=== PATIENT | female | born 1990 | race Caucasian/White ===

== ENCOUNTER 2019-07-19 05:42 | Outpatient (RCR) | payer OTHER, MEDICAID, SELFPAY | END 2019-07-31 00:01 | LOC: ONCMED 05:42 | PROVIDERS: Family Provider Internal Medicine Medical Oncology; Visit Provider Nurse Practitioner | DX: Z51.0 Encounter for antineoplastic radiation therapy (principal); Z51.11 Encounter for antineoplastic chemotherapy; C53.9 Malignant neoplasm of cervix uteri, unspecified; R51 Headache; H93.11 Tinnitus, right ear; R11.0 Nausea; D61.810 Antineoplastic chemotherapy induced pancytopenia; T45.1X5A Adverse effect of antineoplastic and immunosuppressive drugs, initial encounter; R53.83 Other fatigue; R06.02 Shortness of breath; Z79.899 Other long term (current) drug therapy | CPT/HCPCS: 36415; 70553; 77280; 77300; 77336 ×2; 77338; 77386 ×12; 80053 ×3; 85025 ×4; 96365; 96366 ×2; 96367 ×2; 96375 ×2; 96413 ×2; 99214 ×3; A9579; J1100 ×2; J1642 ×3; J1940 ×2; J2469 ×2; J3475 ×3; J3480 ×2; J3490; J7040 ×2; J7050 ×5; J9060 ×2 ==

== ENCOUNTER 2019-08-06 05:45 | Outpatient (RCR) | payer OTHER, MEDICAID, SELFPAY ==
[2019-08-06 14:02] LABS: Basophils % 0.2 %; Eosinophils % 0.7 %; Hematocrit 27.5 % (37.0-47.0); Hemoglobin 9.3 g/dL (11.5-15.3); Lymphocytes # 0.5 10^3/uL (0.8-4.8); Lymphocytes % 13.2 %; Mean Corpuscular HGB Conc 33.8 g/dL (30.0-36.0); Mean Corpuscular Hemoglobin 32.5 pg (28.0-34.0); Mean Corpuscular Volume 96.2 fL (81-99); Mean Platelet Volume 9.4 fL (7.4-10.4); Monocytes # 0.5 10^3/uL (0.2-0.9); Monocytes % 11.2 %; Nucleated Red Blood Cells % 0 %; Platelet Count 180 10^3/cmm (130-400); Red Blood Count 2.86 10^6/uL (4.1-5.3); Red Cell Distribution Width 16.5 % (12.1-15.1)
[2019-08-06 14:35] LABS: Alanine Aminotransferase 22 U/L (0-33); Albumin Level 5.4 g/dL (3.5-5.2); Alkaline Phosphatase 97 IU/L (35-105); Anion Gap 17.1 (5-19); Aspartate Amino Transferase 19 U/L (0-32); Blood Urea Nitrogen 18 mg/dL (6-20); Calcium 9.7 mg/Dl (8.6-10.0); Carbon Dioxide 24 mmol/L (22-29); Chloride 99 mmol/L (98-107); Globulin 1.8 g/dL (1.3-4.6); Glomerular Filtration Rate 53.5 mL/min (90-130); Glucose 118 mg/dL (74-109); Potassium 4.1 mmol/L (3.5-5.1); Sodium 136 mmol/L (136-145); Total Bilirubin 0.2 mg/dL (0.15-1.2); Total Protein 7.2 g/dL (6.6-8.7)
--- NOTE | 2019-08-06 16:02 | ONC FU_ITS ---
[facility] Patient Note Patient: Heena Kaur Unit #: [id number]: 1990 Dictated By: Peña PerezDate of Visit: Aug 06, 2019 Onc MED Follow-Up/Prog Note Chief Complaint: Cervical cancer. 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 She has been in good general health. She had presented during her third with intermittent but persistent vaginal bleeding. She was found to have a cervical mass, and the biopsy on 11/02/2018 did confirm invasive squamous cell carcinoma with marked eosinophil response. By IHC the tumor cells were positive for CK5/6, p63, and p16. They were negative for synaptophysin. Staging MRI of the pelvis on 11/16/2018 showed abnormal signal within the anterior cervical wall, concerning for neoplasm. The area of abnormal signal measured 5.7 x 5.2 x 3.7 cm. The abdomen showed no abnormal findings. She was initially seen by Dr. Abdalla on 11/22/2018. At that time her was estimated to be at 17 weeks and 2 days. Further staging with CT abdomen/pelvis on 11/25/2018 showed focal mass within the cervix, which overall measured 6.9 x 5.5 x 5 cm. There was mild bulging into the contiguous parametrial fat, but without gross invasion otherwise. There were no enlarged lymph nodes noted. Nuclear medicine PET scan on 11/28/2018 showed intense FDG activity within the known cervical cancer, SUV 18.6. There was a small focal anterior extension of the abnormal activity from the cervical region, but there was no evidence for metastatic disease. With those findings she was recommended to undergo neoadjuvant chemotherapy with cisplatin/paclitaxel. Her management was complicated by nausea/vomiting, requiring placement of a duodenal feeding tube and subsequently a jejunostomy feeding tube. She also experienced an anaphylactic reaction to Emend. Ultimately she was able to complete 4 cycles of treatment. On 03/19/2019, at 34 weeks gestation, she underwent delivery by section, and she then proceeded to undergo radical total abdominal hysterectomy, bilateral salpingectomy, and pelvic lymphadenectomy. The procedure also included transposition of the ovaries with omental flap. Pathology on the hysterectomy showed no evidence for residual squamous cell carcinoma in the cervix. She was noted to have decidualized endometrium with no evidence of malignancy in the uterus or fallopian tubes. The pelvic lymph node dissection included 3 right pelvic lymph nodes and 8 left pelvic lymph nodes, all of which were negative for metastatic carcinoma. She has had an uneventful postoperative recovery. She was advised to proceed with postoperative radiation concurrently with weekly cisplatin chemotherapy. She also has a history of anemia and a history of migraine headaches. She has had no other prior medical illnesses. Her previous surgeries have been limited to section in 2012 and arthroscopic right knee surgery in 2007. She is a non-smoker. INTERIM HISTORY: She began radiation concurrently with weekly cisplatin chemotherapy on 06/06/2019. She was able to tolerate the chemotherapy with acceptable toxicity, and she continued with week to treatment on 06/13/2019 and with week 3 treatment on 06/20/2019. Her 4th infusion of cisplatin was delayed until 07/02/2019, mainly due to the , though at that point her white blood cell count was dropping. Mrs Kaur is here today for followup. She has completed radiation and chemotherapy. Her last chemotherapy was on July 09, 2019. She completed radiation therapy on July 17, 2019. She states overall she is doing good. She is still tired but that seems to be improving some. She states she feels that she is, getting a upper respiratory symptoms again but has had no fever or chills. She just had runny nose and slight cough thus far . She denies any fever or chills. Her appetite is good. She denies any new shortness of breath or orthopnea. She denies any chest pain or palpitations. She denies nausea or vomiting. She denies any further numbness or tingling in her hands. She had only a slight variations of that during treatment. She denies any diarrhea or constipation. She will complete possibly 3 cycles of brachii therapy. They are once a week and this is done in [place]. She begins that next week. Her ECOG is 1. Past Medical History: Anemia Cervical cancer Past Surgical History: section in 2019 Radical total abdominal hysterectomy, bilateral salpingectomy, pelvic lymphadenectomy in 2019 Placement of jejunostomy feeding tube in 2018 Placement of duodenal feeding tube in 2018 Placement of Port-A-Cath venous access device in 2018 section in 2012 Arthroscopic right knee surgery in 2007 Allergies: Effexor XR and Emend. Medications: Acetaminophen Extra Strength 2 Tablet (of 500 mg) Oral daily PRN Acid Gamer 1 (150 mg) Tablet Oral PRN LORazepam 1 Tablet (of 1 mg) Oral t.i.d. PRN Ondansetron 1 - 2 Tablet (of 4 mg) Tablet Dispersable Oral four times a day PriLOSEC OTC Tablet, enteric coated Oral PRN Promethazine HCl 1 - 2 Tablet (of 25 mg) Oral four times a day PRN Family History: Ms. Kaur's mother is alive: hypertension. Ms. Kaur's father is alive: type II diabetes. Ms. Kaur has 1 brother who is alive. She has 1 sister who is alive. Father is living at age 49 has diabetes. Mother is living at age 48 and she has hypertension. A paternal aunt had colon and cervical cancer, her paternal grandfather had lung cancer, a paternal uncle had liver cancer, and a paternal great aunt had breast cancer. 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 Ms. Kaur has never smoked. 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 She is a nonsmoker. She does not drink alcohol. Review Of Symptoms: Constitutional Denies fevers, night sweats, excessive fatigue or weight loss. She states she is tired, but no more than her normal. Allergic/Immunologic No reactions. Eyes Denies significant visual changes. No diplopia. No amaurosis. ENMT Denies changes in hearing, sore throat, mouth sores, difficulty or changes in swallowing ability, and/or sinus drainage. Ringing in the ears-see above. Hematologic/Lymphatic Denies easy bruising or bleeding. The patient denies any tender or palpable lymph nodes. Respiratory Denies dyspnea on exertion, chest pain, or hemoptysis. Denies orthopnea. Cardiovascular Denies anginal chest pain, palpitations or orthopnea. Gastrointestinal Denies vomiting, diarrhea, GI bleeding, or constipation. Denies change in bowel habits and/or stool color, no heartburn or early satiety. Genitourinary (F) No hematuria, hesitancy, incontinence, vaginal bleeding, discharge or other problems with urination. Musculoskeletal Denies joint pain, swelling or redness. No decreased range of motion. Integumentary Denies chronic rashes, inflammation, ulcerations or skin changes. Neurologic Denies headache, blurred vision, and no areas of focal weakness or numbness. Normal gait. No sensory problems. Psychiatric Denies insomnia, depression, anthony or mood swings. Vital Signs: Performed on Aug 06, 2019 14:48 Height - 67.00 in Temperature - 97.9 F (LOW) Pulse - 102 /min (HIGH) Respiration - 24 /min BP - 106/72 mm(hg) O2 Sat - 97 % Pain - 0,1 - No physically strenuous activity, but ambulatory and able to carry out light or sedentary work (e.g. office work, light house work). (ECOG) Physical Examination: Constitutional Alert, oriented, no acute distress. Skin pale/pink, warm and dry. Head Normocephalic; atraumatic. Eyes Conjunctivae and sclerae are clear and without icterus. Pupils are reactive and equal. Hematologic/Lymphatic No petechiae or purpura. Back/Spine Non-tender to palpation. Extremities No visible deformities, no cyanosis, clubbing or edema. Musculoskeletal No tenderness or swelling, normal range of motion without obvious weakness. Integumentary No rashes or lesions. Neurologic No sensory or motor deficits, normal cerebellar function, normal gait. Psychiatric Alert and oriented times three. Coherent speech. Verbalizes understanding of our discussions today. Laboratory:Test performed on Aug 06, 2019 13:49 Glucose 118 mg/dL BUN 18 mg/dL Creatinine 1.2 mg/dL Cr Clearance (Est) 102.96 mL/min Sodium 136 mmol/L Potassium 4.1 mmol/L Chloride 99 mmol/L CO2 24 mmol/L Calcium 9.7 mg/dL Protein, Total 7.2 g/dL Albumin 5.4 g/dL Globulin 1.8 g/dL Bilirubin, Total 0.2 mg/dL Alkaline Phosphatase 97 IU/L AST (SGOT) 19 IU/L ALT (SGPT) 22 IU/L WBC 4.0 10^9/L RBC 2.86 10^12/L HGB 9.3 g/dL HCT 27.5 % MCV 96.2 fl MCH 32.5 pg MCHC 33.8 g/dL RDW 16.5 % Platelet Count 180 10^9/L MPV 9.4 fL Neutrophils (Gran) 3.0 10^9/L Lymphocytes 0.5 10^9/L Monocytes 0.5 10^9/L Eosinophils 0.0 10^9/L Basophils 0.0 10^9/L Manual Lymphocytes 13.2 % Manual Monocytes 11.2 % Manual Eosinophils 0.7 % Manual Basophils 0.2 % NRBCs 0.0 /100 WBC Impression: 1. 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 2. She was given neoadjuvant chemotherapy with 4 cycles of cisplatin/paclitaxel. Her treatment was complicated by an anaphylactic reaction to Emend. 3. She underwent section delivery followed by radical total abdominal hysterectomy, bilateral salpingectomy, and bilateral pelvic lymph node dissection on 03/19/2019 with complete pathologic response. 4. She has been anemic. She has been undergoing radiation, currently with weekly cisplatin chemotherapy. She has completed 5 infusions of cisplatin. Thus far she has tolerated the treatment with acceptable toxicity, though she did devlop moderately severe pancytopenia. Her last chemotherapy was on . She completed radiation therapy on 07/17/2019. She is slowly showing recovery in her blood counts. Her hemoglobin today is improved from 8.7 on 1219 and 9.3. Her platelets are improved from 63,000 280,000. Her neutrophil count on 1219 was 1600 and today is 3000. Plan: 1. Continue with recovery/surveillance as she completes brachy therapy. 2. Today's labs reviewed in detail and discussed with Ms. Marshall and a copy was given to her. WBC 4.0, hemoglobin 9.3, platelets 180,000 ANC is 3000. Potassium 4.1 random glucose 118 creatinine 1.2 LFTs are normal. 3. Refill Levaquin and Diflucan in the event that her symptoms do turn into upper respiratory infection. She is still recovering from chemotherapy. 4. She is interested in pursuing a new weight loss diet and exercise. I have cautioned her to go slowly at this point as she is still recovering from chemotherapy and will be recovering from brachii therapy as well. 5. We will plan to see her back in 1 month with CBC CMP port flush and follow-up with Dr. Still to establish further plan of care. 6. Ms. Kaur was instructed to contact us in the interim should questions or problems arise. She is aware that if she feels symptomatic she can call and we can do blood work on her in between visits. She will does need a port flush at that time. Signed By: Peña Perez-, [facility] Rony Still MD <<Signature on File>>
== END 2019-08-31 23:59 | disposition home or self-care (01) ==
LOC: ONCMED 05:45
PROVIDERS: Family Provider Internal Medicine Medical Oncology; Visit Provider Nurse Practitioner
DX: C53.9 Malignant neoplasm of cervix uteri, unspecified (principal); Z90.710 Acquired absence of both cervix and uterus; Z92.21 Personal history of antineoplastic chemotherapy; Z92.3 Personal history of irradiation
CPT/HCPCS: 80053; 85025; 99213; G0463

== ENCOUNTER 2019-09-10 05:56 | Outpatient (RCR) | payer OTHER, MEDICAID, SELFPAY ==
[2019-09-10 09:37] LABS: Basophils % 0.3 %; Eosinophils # 0.7 10^3/uL (0.0-0.8); Eosinophils % 18.1 %; Hematocrit 29.4 % (37.0-47.0); Hemoglobin 9.6 g/dL (11.5-15.3); Lymphocytes # 0.7 10^3/uL (0.8-4.8); Lymphocytes % 19.5 %; Mean Corpuscular HGB Conc 32.7 g/dL (30.0-36.0); Mean Corpuscular Hemoglobin 32.8 pg (28.0-34.0); Mean Corpuscular Volume 100.3 fL (81-99); Mean Platelet Volume 9.6 fL (7.4-10.4); Monocytes # 0.5 10^3/uL (0.2-0.9); Monocytes % 12.3 %; Neutrophils # 1.9 10^3/uL (1.8-7.7); Neutrophils % 49.3 %; Nucleated Red Blood Cells % 0 %; Platelet Count 201 10^3/cmm (130-400); Red Blood Count 2.93 10^6/uL (4.1-5.3); Red Cell Distribution Width 14.1 % (12.1-15.1); White Blood Count 3.8 10^3/uL (4.0-10.0)
[2019-09-10 10:02] LABS: Alanine Aminotransferase 22 U/L (0-33); Albumin Level 4.1 g/dL (3.5-5.2); Alkaline Phosphatase 92 IU/L (35-105); Anion Gap 17.9 (5-19); Aspartate Amino Transferase 19 U/L (0-32); Blood Urea Nitrogen 18 mg/dL (6-20); Calcium 9.5 mg/dL (8.5-10.5); Carbon Dioxide 26 mmol/L (22-29); Chloride 98 mmol/L (98-107); Globulin 2.8 g/dL (1.3-4.6); Glomerular Filtration Rate 59.1 mL/min (90-130); Glucose 105 mg/dL (65-115); Potassium 3.9 mmol/L (3.5-5.1); Sodium 138 mmol/L (136-145); Total Bilirubin 0.2 mg/dL (0.15-1.2); Total Protein 6.9 g/dL (6.6-8.7)
--- NOTE | 2019-09-11 07:36 | ONC FU_ITS ---
Dr. Still Patient Follow-Up Note Patient: Heena Kaur Unit #: [id number]: 1990 Dicatated By: Rony Still M.D.Date of Visit:Sep 10, 2019 Onc Med Follow-up/Prog Note Chief Complaint: Cervical cancer. 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 She has been in good general health. She had presented during her third with intermittent but persistent vaginal bleeding. She was found to have a cervical mass, and the biopsy on 11/02/2018 did confirm invasive squamous cell carcinoma with marked eosinophil response. By IHC the tumor cells were positive for CK5/6, p63, and p16. They were negative for synaptophysin. Staging MRI of the pelvis on 11/16/2018 showed abnormal signal within the anterior cervical wall, concerning for neoplasm. The area of abnormal signal measured 5.7 x 5.2 x 3.7 cm. The abdomen showed no abnormal findings. She was initially seen by Dr. Abdalla on 11/22/2018. At that time her was estimated to be at 17 weeks and 2 days. Further staging with CT abdomen/pelvis on 11/25/2018 showed focal mass within the cervix, which overall measured 6.9 x 5.5 x 5 cm. There was mild bulging into the contiguous parametrial fat, but without gross invasion otherwise. There were no enlarged lymph nodes noted. Nuclear medicine PET scan on 11/28/2018 showed intense FDG activity within the known cervical cancer, SUV 18.6. There was a small focal anterior extension of the abnormal activity from the cervical region, but there was no evidence for metastatic disease. With those findings she was recommended to undergo neoadjuvant chemotherapy with cisplatin/paclitaxel. Her management was complicated by nausea/vomiting, requiring placement of a duodenal feeding tube and subsequently a jejunostomy feeding tube. She also experienced an anaphylactic reaction to Emend. Ultimately she was able to complete 4 cycles of treatment. On 03/19/2019, at 34 weeks gestation, she underwent delivery by section, and she then proceeded to undergo radical total abdominal hysterectomy, bilateral salpingectomy, and pelvic lymphadenectomy. The procedure also included transposition of the ovaries with omental flap. Pathology on the hysterectomy showed no evidence for residual squamous cell carcinoma in the cervix. She was noted to have decidualized endometrium with no evidence of malignancy in the uterus or fallopian tubes. The pelvic lymph node dissection included 3 right pelvic lymph nodes and 8 left pelvic lymph nodes, all of which were negative for metastatic carcinoma. She has had an uneventful postoperative recovery. She was advised to proceed with postoperative radiation concurrently with weekly cisplatin chemotherapy. She also has a history of anemia and a history of migraine headaches. She has had no other prior medical illnesses. Her previous surgeries have been limited to section in 2012 and arthroscopic right knee surgery in 2007. She is a non-smoker. INTERIM HISTORY: She began radiation concurrently with weekly cisplatin chemotherapy on 06/06/2019. She was able to tolerate the chemotherapy with acceptable toxicity, though her 4th infusion of cisplatin was delayed until 07/02/2019, mainly due to the iday. She completed her 5th weekly infusion of cisplatin on 07/09/2019, and her 6th treatment was held due to neutropenia. She had also remained moderately anemic throughout the treatment. She completed radiation on 07/17/2019. The total dose to the pelvis was 4500 cGy followed by a 540 cGy boost to the vaginal cuff. She then underwent vaginal HDR brachytherapy from 08/08/2021 thru 08/21/2019, administered in 3 fractions to a total dose of 1800 cGy. She tolerated it well. She is seen for a followup visit. She still has some fatigue, but her energy is getting better. She has started back to work part-time. Her appetite comes and goes. She has not had fever, but she does complain of having constant hot flashes now. She has no shortness of breath, cough, or chest pain. She still has a little nausea now and then. She has no other GI complaints. She developed some mild bladder symptoms following the brachytherapy, but that appears to be resolving. She has no significant joint or bone pain. She has no focal neurologic symptoms. Medications: Acetaminophen Extra Strength 2 Tablet (of 500 mg) Oral daily PRN Allergies: Effexor XR and Emend. Review of Systems: Constitutional - She is feeling pretty good. She is slowly getting back to work. Her appetite comes and goes. Her weight is up a few pounds. No fever or chills. She has frequent hot flashes and sweating. ECOG score is 1, ENMT - No sinus congestion/drainage. No mouth sores. No sore throat or difficulty swallowing, Hematologic/Lymphatic - She bruises easier than normal, Respiratory - No shortness of breath. No cough. No pleuritic pain or hemoptysis, Cardiovascular - No angina pain. No palpitations, Gastrointestinal - She has occasional nausea. No heartburn or acid reflux. No diarrhea or constipation. No blood in the stool or black stools, Genitourinary (F) - No dysuria or hematuria. No urinary frequency. No urgency or incontinence, Musculoskeletal - No joint or bone pain, Integumentary - No skin complications, Neurologic - No headache or dizziness. No numbness/paresthesias or other focal neurologic symptoms, Psychiatric - No anxiety or depression. She is not sleeping well at night. Vital Signs: Performed on Sep 10, 2019 10:22 Height - 67.00 in Weight - 217.6 lbs (HIGH) BSA - 2.10 sq.m BMI - 34.08 (HIGH) Temperature - 98.0 F (LOW) Pulse - 84 /min Respiration - 18 /min BP - 118/78 mm(hg) O2 Sat - 100 % Pain - 0 Physical Examination: Constitutional - She looks pretty good generally, Eyes - Sclerae nonicteric. Conjunctivae clear, ENMT - No lesions noted in the oral cavity, Hematologic/Lymphatic - No cervical, clavicular, or axillary adenopathy, Respiratory - Lungs are clear with good air movement bilaterally, Cardiovascular - Heart rhyhm is regular. There is no murmur, gallop, or rub noted, Abdomen - Soft. Liver and spleen are not enlarged. There is no abdominal mass or ascites noted and there is no inguinal adenopathy, Extremities - No edema, Neurologic - No focal neurologic deficits noted. Lab/Imaging: Test performed on Sep 10, 2019 09:10 Sodium 138 mmol/L Potassium 3.9 mmol/L Chloride 98 mmol/L CO2 26 mmol/L Anion Gap 17.9 BUN 18 mg/dL Creatinine 1.1 mg/dL Cr Clearance (Est) 112.3200 mL/min eGFR 59.1 mL/min Glucose 105 mg/dL Calcium 9.5 mg/dL Protein, Total 6.9 g/dL Albumin 4.1 g/dL Globulin 2.8 g/dL Bilirubin, Total 0.2 mg/dL ALT (SGPT) 22 U/L AST (SGOT) 19 U/L Alkaline Phosphatase 92 IU/L WBC 3.8 10 3/uL RBC 2.93 10 6/uL HGB 9.6 g/dL HCT 29.4 % MCV 100.3 fL MCH 32.8 pg MCHC 32.7 g/dL RDW 14.1 % Platelet Count 201 10 3/cmm MPV 9.6 fL Neutrophils 1.9 10 3/uL Lymphocytes 0.7 10 3/uL Monocytes 0.5 10 3/uL Eosinophils 0.7 10 3/uL Basophils 0.0 10 3/uL Neutrophil % 49.3 % Lymphocyte % 19.5 % Monocyte % 12.3 % Eosinophil % 18.1 % Basophils % 0.3 % Impression: 1. 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 2. She was given neoadjuvant chemotherapy with 4 cycles of cisplatin/paclitaxel. Her treatment was complicated by an anaphylactic reaction to Emend. 3. She underwent section delivery followed by radical total abdominal hysterectomy, bilateral salpingectomy, and bilateral pelvic lymph node dissection on 03/19/2019 with complete pathologic response. 4. She has chronic anemia. She began radiation concurrently with weekly cisplatin chemotherapy on 06/06/2019. She completed radiation on 07/17/2019. The total dose to the pelvis was 4500 cGy followed by a 540 cGy boost to the vaginal cuff. During that time she received at total of 5 weekly infusions of cisplatin, her 6th treatment having been held due to neutropenia. She remained moderately anemic throughout the treatment. She then underwent vaginal HDR brachytherapy from 08/08/2021 thru 08/21/2019, administered in 3 fractions to a total dose of 1800 cGy. She tolerated it well. At this point she continues have some fatigue, but she appears to be showing good recovery following her treatment. She still has moderately severe anemia, and a specific cause for that has not been determined. Plan: She will be followed now on observation/expectant management. I will see her again in 3 months, and at that time I will obtain additional laboratory studies for evaluation of the anemia. In the meantime, I will have her take a vitamin daily. Signed By: Rony Still M.D. <<Signature on File>>
== END 2019-09-29 23:59 | disposition home or self-care (01) ==
LOC: ONCMED 05:56
PROVIDERS: Absent Provider Nurse Practitioner; Family Provider Internal Medicine Medical Oncology; Visit Provider Internal Medicine Medical Oncology
DX: C53.9 Malignant neoplasm of cervix uteri, unspecified (principal); D64.9 Anemia, unspecified; Z92.3 Personal history of irradiation; Z92.21 Personal history of antineoplastic chemotherapy; Z90.710 Acquired absence of both cervix and uterus
CPT/HCPCS: 36591; 80053; 85025; 99214

== ENCOUNTER 2019-10-09 15:51 | Outpatient (CLI) | payer OTHER, MEDICAID, SELFPAY | END 2019-10-09 15:52 | disposition home or self-care (01) | LOC: ONCMED 16:53 | PROVIDERS: Absent Provider Nurse Practitioner; Family Provider Internal Medicine Medical Oncology; Visit Provider Internal Medicine Medical Oncology | DX: Z45.2 Encounter for adjustment and management of vascular access device (principal) | CPT/HCPCS: 96523 ==

== ENCOUNTER 2019-11-09 08:13 | Outpatient (CLI) | payer OTHER, MEDICAID, SELFPAY | END 2019-11-09 08:14 | disposition home or self-care (01) | LOC: ONCMED 08:13 | PROVIDERS: Visit Provider Internal Medicine Medical Oncology | DX: Z45.2 Encounter for adjustment and management of vascular access device (principal) | CPT/HCPCS: 96523 ==

== ENCOUNTER 2019-12-06 07:59 | Outpatient (CLI) | payer OTHER, MEDICAID, SELFPAY ==
[2019-12-06 12:10] LABS: Basophils % 0.2 %; Eosinophils # 0.1 10^3/uL (0.0-0.8); Eosinophils % 0.9 %; Hematocrit 36.3 % (37.0-47.0); Hemoglobin 11.9 g/dL (11.5-15.3); Lymphocytes # 0.8 10^3/uL (0.8-4.8); Lymphocytes % 14.5 %; Mean Corpuscular HGB Conc 32.8 g/dL (30.0-36.0); Mean Corpuscular Hemoglobin 31.3 pg (28.0-34.0); Mean Corpuscular Volume 95.5 fL (81-99); Mean Platelet Volume 9.3 fL (7.4-10.4); Monocytes # 0.4 10^3/uL (0.2-0.9); Monocytes % 8.1 %; Neutrophils % 75.9 %; Nucleated Red Blood Cells % 0 %; Platelet Count 225 10^3/cmm (130-400); Red Cell Distribution Width 11.6 % (12.1-15.1); White Blood Count 5.3 10^3/uL (4.0-10.0)
[2019-12-06 12:17] LABS: LAB Peripheral Smear Sent for Review
[2019-12-06 12:27] LABS: Alanine Aminotransferase 23 U/L (0-33); Albumin Level 4.3 g/dL (3.5-5.2); Alkaline Phosphatase 97 IU/L (35-105); Anion Gap 15.9 (5-19); Aspartate Amino Transferase 21 U/L (0-32); Blood Urea Nitrogen 17 mg/dL (6-20); Calcium 9.7 mg/dL (8.5-10.5); Carbon Dioxide 25 mmol/L (22-29); Chloride 100 mmol/L (98-107); Ferritin 497 ng/mL (15-150); Globulin 3.4 g/dL (1.3-4.6); Glomerular Filtration Rate 65.6 mL/min (90-130); Glucose 94 mg/dL (65-115); Lactate Dehydrogenase 181 U/L (135-214); Osmolality Calculated 280 mOsm/kg (285-295); Potassium 3.9 mmol/L (3.5-5.1); Sodium 137 mmol/L (136-145); Total Bilirubin 0.2 mg/dL (0.15-1.2); Total Protein 7.7 g/dL (6.6-8.7)
[2019-12-06 12:28] LABS: Homocysteine 11.27
[2019-12-06 12:42] LABS: Vitamin B12 150 pg/mL (232-1245)
[2019-12-10 15:21] LABS: Methylmalonic Acid 345 nmol/L (87-318)
== END 2019-12-06 08:00 | disposition home or self-care (01) ==
LOC: ONCMED 07:59
PROVIDERS: Visit Provider Internal Medicine Medical Oncology
DX: C53.9 Malignant neoplasm of cervix uteri, unspecified (principal)
CPT/HCPCS: 36591; 80053; 82607; 82728; 82746; 83010; 83090; 83615; 83921; 85025; 85045

== ENCOUNTER 2019-12-18 17:13 | Observation (INO) | payer OTHER, SELFPAY ==
[2019-12-18 17:14] VITALS: BP 116/87; PULSE 116; RESP 22; TEMP 36.9; O2SAT 96; BMI 31.3
--- NOTE | 2019-12-18 17:28 | W.ED.BACK ---
Documented by User: Thomas Goode DO 12/19/19 15:38 HPI - Back Pain/Injury General: Chief Complaint: Back Pain/Injury Stated Complaint: lower back pain Time Seen by Provider: 12/18/19 17:23 History of Present Illness: HPI Narrative: 29-year-old female who was at work suddenly began having severe back pain she cannot recall anything she really did to trigger there is no trauma she has had back pain before but never to this extent. She has at times felt like she would lose control of her bowels or her urine. Pain starts in her upper lumbar spine and radiates down into the right buttock and the posterior portion of her right thigh does not go down into her toes. Initially she is in such exquisite pain is difficult to even examine her. MD elicited complaint: back pain Onset (ago): hour(s) Timing: constant Severity: severe Quality: stabbing Location: lumbar spine Radiation: right upper leg Exacerbating factors: movement and walking Relieving factors: other (Prone) Associated symptoms: Reports difficulty walking and weakness; Deny dysuria, fecal incontinence, fever(s), hematuria, myalgias, nausea, syncope, urinary frequency, urinary urgency or vomiting Work related injury: No Review of Systems Const: Denies: fever(s) ENMT: Denies: throat pain, ear or mastoid pain, nasal discharge or nasal congestion Card: Denies: syncope Resp: Denies: dyspnea, productive cough or non-productive cough GI: Denies: nausea, vomiting or fecal incontinence : Denies: dysuria, urinary urgency or hematuria Skin/Breast: Denies: rash or pruritus Neuro: Reports: difficulty walking PFSH ED PFSH: Medical History History of cervical cancer Surgical History History of hysterectomy Social History Smoking and tobacco status: never smoked Alcohol intake: never Current occupation: [employer] Physical Exam Const: COMMON NORMALS: no acute distress GENERAL APPEARANCE: cooperative and comfortable ORIENTATION/CONSCIOUSNESS: Yes awake, Yes oriented to person, Yes oriented to place and Yes oriented to time Neck/C-Spine: COMMON NORMALS: no JVD Resp: COMMON NORMALS: normal respiratory effort, No retractions, No use of accessory muscles and clear to auscultation bilaterally AUSCULTATION: clear to auscultation bilaterally Cardio: COMMON NORMALS: no JVD, regular rate, regular rhythm and No murmurs present (Cardio) RATE: regular rate RHYTHM: regular rhythm GI: COMMON NORMALS: Soft to palpation and No hepatosplenomegaly present AUSCULTATION: Yes normoactive bowel sounds PALPATION: Yes Soft to palpation, No Tenderness to palpation present (GI), No Guarding due to palpation present (GI) and Yes No hepatosplenomegaly present Extremity: COMMON NORMALS: normal to inspection, capillary refill normal, no clubbing, cyanosis or edema, no calf tenderness and no pedal edema Neuro: SENSORIUM/ORIENTATION: Yes oriented to person, Yes oriented to place and Yes oriented to time Skin: COMMON NORMALS: no rashes or lesions noted GENERAL SKIN EXAM: no rashes or lesions noted Course Vital Signs: Vital signs: Vital Signs Temperature 98.2 F 12/19/19 11:55 Pulse Rate 95 12/19/19 11:55 Respiratory Rate 18 12/19/19 11:55 Blood Pressure 119/77 12/19/19 11:55 Pulse Oximetry 96 12/19/19 11:55 MDM - Back Pain/Injury MDM Narrative: Medical decision making narrative: Patient's presentation is concerning for cauda equina syndrome she is describing since of losing her bowels at times. Additionally she has a history of aggressive cervical cancer previous had a hysterectomy we will get an MRI to further evaluate care turned over to Dr. Bateman at change of shift Lab Data: Labs: Lab Results 12/18/19 12/18/19 Range/Units 22:35 22:35 WBC 10.3 H (4.0-10.0) 10^3/ uL RBC 3.80 L (4.1-5.3) 10^6/u L Hgb 11.9 (11.5-15.3) g/dL Hct 36.1 L (37.0-47.0) % MCV 95.0 (81-99) fL MCH 31.3 (28.0-34.0) pg MCHC 33.0 (30.0-36.0) g/dL RDW 11.9 L (12.1-15.1) % Plt Count 215 (130-400) 10^3/c mm MPV 9.2 (7.4-10.4) fL Neut % (Auto) 94.5 % Lymph % (Auto) 3.9 % [place] % (Auto) 1.0 % Eos % (Auto) 0.0 % Baso % (Auto) 0.1 % Neut # (Auto) 9.7 H (1.8-7.7) 10^3/u L Lymph # (Auto) 0.4 L (0.8-4.8) 10^3/u L [place] # (Auto) 0.1 L (0.2-0.9) 10^3/u L Eos # (Auto) 0.0 (0.0-0.8) 10^3/u L Baso # (Auto) 0.0 (0.0-0.1) 10^3/u L Nucleated RBC % (a uto) 0 % Nucleated RBCs # 0.0 /100WBC Sodium 138 (136-145) mmol/L Potassium 4.0 (3.5-5.1) mmol/L Chloride 100 (98-107) mmol/L Carbon Dioxide 24 (22-29) mmol/L Anion Gap 18.0 (5-19) BUN 18 (6-20) mg/dL Creatinine 1.1 H (0.5-0.9) mg/dL GFR Calculation 58.7 L (90-130) mL/min Glucose 181 H (65-115) mg/dL Calculated Osmolal ity 287 (285-295) mOsm/k g Calcium 9.2 (8.5-10.5) mg/dL Total Bilirubin 0.2 (0.15-1.2) mg/dL AST 25 (0-32) U/L ALT 33 (0-33) U/L Alkaline Phosphata se 102 (35-105) IU/L Total Protein 7.5 (6.6-8.7) g/dL Albumin 4.7 (3.5-5.2) g/dL Globulin 2.8 (1.3-4.6) g/dL Discharge Plan Discharge Patient Disposition: Admitted As Inpatient Admit Provider: Nazanin Valdivia Clinical Impression: Prolapsed intervertebral disk Qualifiers: Spinal region: lumbar Qualified Code(s): M51.26 - Other intervertebral disc displacement, lumbar region Condition: Stable Discharge Date/Time: 12/19/19 00:51 Coding Level of Care Code ED Die Cutter Apprentice for Chg Fwd Exam Detailed Documented by User: Whit Bateman MD 12/19/19 00:16 HPI - Back Pain/Injury General: Chief Complaint: Back Pain/Injury Stated Complaint: lower back pain Time Seen by Provider: 12/18/19 17:23 PFSH ED PFSH: Medical History History of cervical cancer Surgical History History of hysterectomy Social History Smoking and tobacco status: never smoked Alcohol intake: never Current occupation: [employer] Course Vital Signs: Vital signs: Vital Signs Temperature 98.2 F 12/19/19 11:55 Pulse Rate 95 12/19/19 11:55 Respiratory Rate 18 12/19/19 11:55 Blood Pressure 119/77 12/19/19 11:55 Pulse Oximetry 96 12/19/19 11:55 MDM - Back Pain/Injury MDM Narrative: Medical decision making narrative: I took patient over from Dr. Rose. Patient's MRI showed disc protrusion with stenosis of the canal. I spoke to Dr. Mims and will admit here for pain control. Patient has no signs of cauda equina Lab Data: Labs: Lab Results 12/18/19 12/18/19 Range/Units 22:35 22:35 WBC 10.3 H (4.0-10.0) 10^3/ uL RBC 3.80 L (4.1-5.3) 10^6/u L Hgb 11.9 (11.5-15.3) g/dL Hct 36.1 L (37.0-47.0) % MCV 95.0 (81-99) fL MCH 31.3 (28.0-34.0) pg MCHC 33.0 (30.0-36.0) g/dL RDW 11.9 L (12.1-15.1) % Plt Count 215 (130-400) 10^3/c mm MPV 9.2 (7.4-10.4) fL Neut % (Auto) 94.5 % Lymph % (Auto) 3.9 % [place] % (Auto) 1.0 % Eos % (Auto) 0.0 % Baso % (Auto) 0.1 % Neut # (Auto) 9.7 H (1.8-7.7) 10^3/u L Lymph # (Auto) 0.4 L (0.8-4.8) 10^3/u L [place] # (Auto) 0.1 L (0.2-0.9) 10^3/u L Eos # (Auto) 0.0 (0.0-0.8) 10^3/u L Baso # (Auto) 0.0 (0.0-0.1) 10^3/u L Nucleated RBC % (a uto) 0 % Nucleated RBCs # 0.0 /100WBC Sodium 138 (136-145) mmol/L Potassium 4.0 (3.5-5.1) mmol/L Chloride 100 (98-107) mmol/L Carbon Dioxide 24 (22-29) mmol/L Anion Gap 18.0 (5-19) BUN 18 (6-20) mg/dL Creatinine 1.1 H (0.5-0.9) mg/dL GFR Calculation 58.7 L (90-130) mL/min Glucose 181 H (65-115) mg/dL Calculated Osmolal ity 287 (285-295) mOsm/k g Calcium 9.2 (8.5-10.5) mg/dL Total Bilirubin 0.2 (0.15-1.2) mg/dL AST 25 (0-32) U/L ALT 33 (0-33) U/L Alkaline Phosphata se 102 (35-105) IU/L Total Protein 7.5 (6.6-8.7) g/dL Albumin 4.7 (3.5-5.2) g/dL Globulin 2.8 (1.3-4.6) g/dL Imaging Data^: MRI: Radiologist's impression: [address] [place] [address] Magnetic Resonance Report Signed Patient: Heena Kaur Unit #: [id number] : 1990 Age/Sex: 29 / F ADM Date: 12/18/19 Loc: ER Room/Bed: Attending Dr: Ordering Provider/Ordering MD: Whit Bateman MD Date of Service: 12/18/19 Procedure(s): MR lumbar spine wo/w con [id number] Accession Number(s): [id number] Report Number: [id number] PROCEDURE INFORMATION: Exam: MR Lumbar Spine Without and With Contrast. Exam date and time: 12/18/2019 8:00 PM Age: 29 years old Clinical indication: Low back pain; Additional info: PT twisted and felt a sharp pain radiate up her spine to between he shoulder blades and down into her low back and bilateral hips and left leg with numbness and tingling in the left toes TECHNIQUE: Imaging protocol: Multiplanar magnetic resonance images of the lumbar spine without and with intravenous contrast. Contrast material: PROHANCE; Contrast volume: 17 ml; Contrast route: IV; COMPARISON: CT lumbar spine wo con* [id number] 12/18/2019 5:57 PM FINDINGS: Vertebrae: Unremarkable. Spinal cord: Normal signal. No cord compression. Discs/Spinal canal/Neural foramina: At L2-L3, there is a central disc protrusion which is flattening the ventral thecal sac. There is mild foraminal narrowing. At L3-L4, there is a small broad-based disc bulge. No stenosis or focal foraminal narrowing. At L4-L5, there is a central disc protrusion with flattening of the ventral thecal sac. There is mild bilateral foraminal narrowing but no critical stenosis. At L5-S1, there is a small disc bulge. No stenosis . There is mild bilateral foraminal narrowing mostly due to facet hypertrophy. Soft tissues: Unremarkable. MR/MR lumbar spine wo/w con [id number] IMPRESSION: 1. No acute bony abnormality. 2. Disc protrusion with moderate stenosis of the central canal and flattening of the ventral thecal sac at L2-L3 and L4-L5. Small disc bulge at L3-L4. There is mild foraminal narrowing greatest bilaterally at L5-S1 due to bony proliferative changes. Discharge Plan Discharge Patient Disposition: Admitted As Inpatient Admit Provider: Nazanin Valdivia Clinical Impression: Prolapsed intervertebral disk Qualifiers: Spinal region: lumbar Qualified Code(s): M51.26 - Other intervertebral disc displacement, lumbar region Condition: Stable Discharge Date/Time: 12/19/19 00:51 Coding Level of Care Code ED Die Cutter Apprentice for Chg Fwd Exam Detailed
--- NOTE | 2019-12-18 17:31 | CTR_ITS ---
PROCEDURE INFORMATION: Exam: CT Lumbar Spine Without Contrast Exam date and time: 12/18/2019 5:38 PM Age: 29 years old Clinical indication: Prior surgery; Surgery date: 6+ months; Surgery type: Hyst; Patient HX: PT. Was working and all of the sudden had horrible shooting low back pain and back spasms TECHNIQUE: Imaging protocol: Computed tomography images of the lumbar spine without contrast. Radiation optimization: All CT scans at this facility use at least one of these dose optimization techniques: automated exposure control; mA and/or kV adjustment per patient size (includes targeted exams where dose is matched to clinical indication); or iterative reconstruction. COMPARISON: No relevant prior studies available. FINDINGS: Vertebrae: There is no acute fracture or subluxation. There are [id number] facet degenerative changes. Discs/Spinal canal/Neural foramina: There is a focal disc protrusion at L2-L3 with flattening of the ventral thecal sac and moderate stenosis of the canal. There is bilateral foraminal narrowing left greater than right. There is a small broad-based disc bulge at L3-L4 with mild narrowing of the central canal and foramina but no critical stenosis. At L4-L5, there is a focal disc protrusion with flattening of the ventral thecal sac. There is mild symmetric foraminal narrowing. At L5-S1, there is a small disc bulge without stenosis. There is mild foraminal narrowing. Sacrum/coccyx: There are mild sacroiliac joint degenerative changes. Soft tissues: Unremarkable. CT/CT lumbar spine wo con* [id number] IMPRESSION: 1. No acute bony abnormality. 2. Disc protrusion with narrowing of the central canal and foramina are noted at L2-L3 and L4-L5 resulting in flattening of the thecal sac and moderate stenosis of the central canal. Small disc bulge at L3-L4 without significant stenosis is noted. MRI may be helpful for further evaluation. Total DLP: 5008.17 mGy-cm Radiation Dose CTDIVOL = (mGy): DLP = 5008.17 (mGy-cm)
[2019-12-18] MEDS: ondansetron 2 mg/ML SDV 2 mL 4 MG IVP (17:47)
[2019-12-18] MEDS: ketorolac 30 mg/mL INJ IVP (17:48)
[2019-12-18] MEDS: orphenadrine 30 mg/mL Inj 2 mL 60 MG IVP (17:48)
[2019-12-18 17:49] VITALS: RESP 22
[2019-12-18] MEDS: dexamethasone 10 mg/mL INJ IVP (17:49)
[2019-12-18] MEDS: morphine 4 mg/mL SDV 1 mL 6 MG IVP (17:49)
[2019-12-18 18:20] VITALS: RESP 16
[2019-12-18] MEDS: morphine 4 mg/mL SDV 1 mL IVP ×2 (18:20→23:01)
--- NOTE | 2019-12-18 18:36 | MRR_ITS ---
PROCEDURE INFORMATION: Exam: MR Lumbar Spine Without and With Contrast. Exam date and time: 12/18/2019 8:00 PM Age: 29 years old Clinical indication: Low back pain; Additional info: PT twisted and felt a sharp pain radiate up her spine to between he shoulder blades and down into her low back and bilateral hips and left leg with numbness and tingling in the left toes TECHNIQUE: Imaging protocol: Multiplanar magnetic resonance images of the lumbar spine without and with intravenous contrast. Contrast material: PROHANCE; Contrast volume: 17 ml; Contrast route: IV; COMPARISON: CT lumbar spine wo con* [id number] 12/18/2019 5:57 PM FINDINGS: Vertebrae: Unremarkable. Spinal cord: Normal signal. No cord compression. Discs/Spinal canal/Neural foramina: At L2-L3, there is a central disc protrusion which is flattening the ventral thecal sac. There is mild foraminal narrowing. At L3-L4, there is a small broad-based disc bulge. No stenosis or focal foraminal narrowing. At L4-L5, there is a central disc protrusion with flattening of the ventral thecal sac. There is mild bilateral foraminal narrowing but no critical stenosis. At L5-S1, there is a small disc bulge. No stenosis . There is mild bilateral foraminal narrowing mostly due to facet hypertrophy. Soft tissues: Unremarkable. MR/MR lumbar spine wo/w con [id number] IMPRESSION: 1. No acute bony abnormality. 2. Disc protrusion with moderate stenosis of the central canal and flattening of the ventral thecal sac at L2-L3 and L4-L5. Small disc bulge at L3-L4. There is mild foraminal narrowing greatest bilaterally at L5-S1 due to bony proliferative changes.
--- NOTE | 2019-12-18 18:36 | MRR_ITS ---
PROCEDURE INFORMATION: Exam: MR Thoracic Spine Without and With Contrast Exam date and time: 12/18/2019 8:00 PM Age: 29 years old Clinical indication: Pain in thoracic spine; Additional info: PT twisted and felt a sharp pain radiate up her spine to between he shoulder blades and down into her low back and bilateral hips and left leg with numbness and tingling in the left toes TECHNIQUE: Imaging protocol: Multiplanar magnetic resonance images of the thoracic spine without and with intravenous contrast. Contrast material: PROHANCE; Contrast volume: 17 ml; Contrast route: IV; COMPARISON: No relevant prior studies available. FINDINGS: Vertebrae: Unremarkable. Spinal cord: Normal signal. No cord compression. Discs/Spinal canal/Neural foramina: No significant disc disease. No significant spinal canal stenosis. Lungs: There is some patchy opacity in the visualized lower parenchyma that may reflect some atelectasis or pneumonitis. Pleural space: No pleural effusion. Soft tissues: Unremarkable. MR/MR thoracic spine wo/w [id number] IMPRESSION: Unremarkable spine.
[2019-12-18] MEDS: LORazepam 2 mg/mL INJ 1 mL IVP ×2 (19:44→21:17)
[2019-12-18] MEDS: HYDROmorphone 1 mg/mL INJ 1 mL IVP (19:44)
[2019-12-18 22:28] VITALS: BP 120/72; PULSE 107; RESP 18; O2SAT 97
[2019-12-18] MEDS: diazePAM 5 mg Tablet PO (22:29)
[2019-12-18 22:45] LABS: Basophils % 0.1 %; Hematocrit 36.1 % (37.0-47.0); Hemoglobin 11.9 g/dL (11.5-15.3); Lymphocytes # 0.4 10^3/uL (0.8-4.8); Lymphocytes % 3.9 %; Mean Corpuscular Hemoglobin 31.3 pg (28.0-34.0); Mean Platelet Volume 9.2 fL (7.4-10.4); Monocytes # 0.1 10^3/uL (0.2-0.9); Neutrophils # 9.7 10^3/uL (1.8-7.7); Neutrophils % 94.5 %; Nucleated Red Blood Cells % 0 %; Platelet Count 215 10^3/cmm (130-400); Red Cell Distribution Width 11.9 % (12.1-15.1); White Blood Count 10.3 10^3/uL (4.0-10.0)
[2019-12-18 23:01] VITALS: RESP 18; O2SAT 99
[2019-12-18 23:02] LABS: Alanine Aminotransferase 33 U/L (0-33); Albumin Level 4.7 g/dL (3.5-5.2); Alkaline Phosphatase 102 IU/L (35-105); Aspartate Amino Transferase 25 U/L (0-32); Blood Urea Nitrogen 18 mg/dL (6-20); Calcium 9.2 mg/dL (8.5-10.5); Carbon Dioxide 24 mmol/L (22-29); Chloride 100 mmol/L (98-107); Globulin 2.8 g/dL (1.3-4.6); Glomerular Filtration Rate 58.7 mL/min (90-130); Glucose 181 mg/dL (65-115); Osmolality Calculated 287 mOsm/kg (285-295); Sodium 138 mmol/L (136-145); Total Bilirubin 0.2 mg/dL (0.15-1.2); Total Protein 7.5 g/dL (6.6-8.7)
[2019-12-19] VITALS (10 sets, daily range): BP systolic 95–161; BP diastolic 57–77; PULSE 78–99; RESP 16–20; TEMP 36.7–36.9; O2SAT 94–99
--- NOTE | 2019-12-19 01:40 | P.HP_ITS ---
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 As of last oncology visit on 09/11, she has CATRACHITO and on expectant management. she returns today to ER with c/o sudden onset severe back pain in the lumbar region adiating down to the right buttock ad thigh. Associated parasthesias+. No incontinence of bowel or bladder. Lumbar spine Ct and MRI with Disc protrusion with narrowing of the central canal and foramina are noted at L2-L3 and L4-L5 resulting in flattening of the thecal sac and moderate stenosis of the central canal. Unremarkable thoracic MRI. Due to c/f cord compression, she has received decadron 10mg iv x [address] Mims has been consulted from the ER. Her chief complaint currently is pain, s/p ketorolac, morphine, norflex with some improvement now. Review of Systems General: Reports: 10 or more systems reviewed and unremarkable except in HPI and below Const: Denies: fever(s), chills or body aches Eyes: Denies: change in vision, blurry vision or photophobia ENMT: Reports: hoarseness; Denies: throat pain, enlarged tonsils, odynophagia or nasal congestion Card: Denies: chest pain, palpitations, irregular heart rhythm, edema, swelling of feet/ankles, lightheadedness, pre-syncope, dyspnea on exertion or orthopnea Resp: Denies: dyspnea, productive cough, non-productive cough, wheezing, stridor, pain on inspiration, change in phlegm color, hemoptysis or chest congestion GI: Denies: abdominal pain, nausea, vomiting, hematemesis, coffee ground emesis, dysphagia, heartburn, diarrhea, constipation, GI cramping, change in stool character, hematochezia or melena : Denies: flank pain, difficulty voiding, dysuria, urinary frequency, urinary urgency, urinary hesitancy or hematuria Musc: Denies: neck pain, back pain, extremity pain, joint swelling, joint warmth or deformity Neuro: Denies: headache(s), numbness in extremities, weakness in extremities, sensory changes, difficulty walking, frequent falls, dizziness, vertigo, behavioral changes, Slurred speech present or seizure-like activity Psych: Denies: anxiety, depression, suicidal ideation or homicidal ideation Endo: Denies: polyuria, polydipsia, tired all the time, cold intolerance or hot flashes Ellis/Lymph: Denies: easy bruising or easy bleeding Medications/Allergies Home Medications Medication Instructions Recorded Confirmed Last Taken Type PNV,calcium 72-iron,carb-folic 1 tab PO DAILY 12/18/19 12/18/19 12/17/19 History [ Plus] cyanocobalamin (vitamin B-12) 2,500 mcg SUBLINGUAL DAILY 12/18/19 12/18/19 12/17/19 History [Vitamin B-12] cyclobenzaprine 10 mg PO BEDTIME 12/18/19 12/18/19 12/17/19 History gabapentin 600 mg PO BEDTIME 12/18/19 12/18/19 12/17/19 History ibuprofen 800 mg PO DAILY 12/18/19 12/18/19 12/17/19 History lorazepam 2 mg PO PRN PRN 12/18/19 12/18/19 Unknown History omeprazole magnesium [Prilosec OTC] 40 mg PO BEDTIME 12/18/19 12/18/19 12/17/19 History phentermine See Rx Instructions .ROUTE .COMPLEX 12/18/19 12/18/19 12/18/19 History tamsulosin [Flomax] 0.4 mg PO BEDTIME 12/18/19 12/18/19 12/17/19 History trazodone 100 mg PO BEDTIME 12/18/19 12/18/19 12/17/19 History Allergies Allergy/AdvReac Type Severity Reaction Status Date / Time aprepitant [From Emend] Allergy NA Verified 09/03/19 11:22 fosaprepitant [From Emend] Allergy NA Verified 09/03/19 11:22 venlafaxine [From Effexor] Allergy na Verified 12/19/19 01:31 PFSH Acute PFSH: Medical History History of cervical cancer Surgical History History of hysterectomy Social History Smoking and tobacco status: never smoked Alcohol intake: never Vitals/I&O/Wt Last Vital Signs Temp 98.4 F 12/18/19 17:14 Pulse 78 12/19/19 00:27 Resp 16 12/19/19 00:27 BP 120/72 12/19/19 00:27 Pulse Ox 98 12/19/19 00:27 Weight last 48 hrs Weight 90.718 kg Physical Exam Narrative: EXAM NARRATIVE: GEN: Awake, alert and oriented, no acute distress CVS: S1S2 N RS: CTA B/L Abd: Soft, nt/nd , bs+ TEACHING MUSIC LESSONS: no focal neuro deficits Data : 12/18/19 22:35 12/18/19 22:35 A&P Assessment and plan (1) Prolapsed intervertebral disk: Status: Acute Qualifiers: Spinal region: lumbar Qualified Code(s): M51.26 - Other intervertebral disc displacement, lumbar region (2) Lumbar radiculopathy, acute: Status: Acute Additional A&P Information Admit to med/surg in observation Proloapsed intervertebral disc with lumbar radiculopathy Iv morphine/toradol/flexeril prn, local lidocaine patch for pain control Associated parasthesias raised concern for possible cord compression for which she has eceived 10mg iv dexamethasone. Continue po regimen for now Neurosurgery evaluation in am- Call placed from ER PT/OT evaluation Dvt ppx: Scd, hold off on a/c for now until neurosurgery evaluation Full code Attestations Medical Necessity Statement*: antcipate less than 2 midnight admission for evaluation of disc prolapse, pain control Coding Level of Care Code Acute [employer] History Professor for Chg Fwd Diagnoses Prolapsed intervertebral disk M51.26 Spinal region: lumbar Lumbar radiculopathy, acute M54.16
[2019-12-19] MEDS: oxyCODONE-APAP 10-325 mg Tablet 1 TAB PO ×3 (02:42→17:52)
[2019-12-19] MEDS: ketorolac 30 mg/mL INJ IVP ×3 (02:45→13:28)
[2019-12-19] MEDS: cyclobenzaprine 10 mg Tablet PO ×3 (02:53→21:13)
[2019-12-19] MEDS: dexamethasone 4 mg Tablet PO ×3 (09:09→17:52)
[2019-12-19] MEDS: lidocaine 5% Patch 1 PATCH TOPICAL ×2 (09:11→21:08)
--- NOTE | 2019-12-19 09:56 | PC.CHAP ---
Pastoral Care Encounter/Spiritual Assessment Type of Contact [] Declined analysis manager visit [] Patient/Family/Request visit [] Outpatient visit [] Follow-up visit [] Physician referral [] Code/Alert [x] Routine visit [] Staff referral [] Actively dying [] Patient sleeping [] Family support [] [] Out of room [] Palliative care [] [x] Receiving care in room [] Pre-surgical visit [] Trauma [] Long length of stay [] ICU visit [] Other: Relational/Emotional Strength [] Patient feels connected with others/family/visitors/staff [] Distress [] Loneliness/isolation [] Abandonment Spirituality of Patient [] Person of Jazmyne [] Attends Islam of their Jazmyne [] Believes in Prayer [] Reads Bible or Amish materials [] There are Spiritual issues to be addressed Child Neurologist Interventions [] Prayer [] Active listening [] Non-anxious presence [] Spiritual/emotional support [] Crisis/trauma care [] Spiritual counseling [] Bereavement support [] Provided bereavement packet [] Provided Bible/devotional materials [] Provided toy/stuffed animal, coloring book to patient or family member [] Provided Communion [] Anointing/[place] [] Salvation [x] Completed spiritual assessment [] Other: Impact on Illness or Injury [] Angry [] Fearful [] Anxious [] Often cries [] Exhaustion [] Unable to work [] Unable to attend latter-day [] Unable to walk/stand [] Unable to read [] Unable to drive [] Unable to eat/drink [] Unable to sleep [] Unable to be with family [] Patient intubated [] Other: Summary Patient busy with staff. Time spent with patient
--- NOTE | 2019-12-19 10:52 | P.PN_ITS ---
Subjective Subjective: Interval history: Still having pain/pressure to the R of the midline of the L spine. Intermittently sharp/electric pain, but also intermittent numbness traveling down the posterior of the right leg. Yesterday reports was feeling occasional numbness in her feet, although has some chronic numbness in her feet, but on and off this was worse than usual. Yesterday also had some feeling occasionally like she was going to lose control of her bladder, although did not. Yesterday while sitting down also felt like she was going to lose control of her bowel, although managed to maintain control. Has been having quite a bit of cramping in lower back, right leg. Reports has been having some herniated disks ever since she was 12 years old, but never had anything this bad. Reports at work pivoted to reach for a vitals machine, as she usually does, since usually tries to be careful about her back. She denies lifting anything heavy. Had no trauma. Last 1.5 days also having some hot flashes. She had AALIYAH, but says ovaries were left, although has had some significant radiation. The symptoms have not been long lasting, however. She feels that heat did help her somewhat yesterday, although difficult to say as she had also gotten an NSAID, muscle relaxer, and an opioid as well in addition to IV steroid. Vitals/I&O/Wt Last Vital Signs Temp 98.4 F 12/19/19 07:27 Pulse 88 12/19/19 07:27 Resp 18 12/19/19 09:05 BP 111/60 12/19/19 07:27 Pulse Ox 97 12/19/19 09:05 12/18/19 12/19/19 12/19/19 22:59 06:59 14:59 Intake Total 240 / 240 240 / 240 Balance 240 / 240 240 / 240 Weight last 48 hrs Weight 90.718 kg Physical Exam Const: COMMON NORMALS: patient oriented x3 NUTRITIONAL APPEARANCE: overweight OTHER: Antalgic positioning on her left side. Very careful about moving in bed. HENMT: COMMON NORMALS: oropharynx normal Neck/C-Spine: COMMON NORMALS: no JVD Resp: COMMON NORMALS: normal respiratory effort and clear to auscultation bilaterally AUSCULTATION: clear to auscultation bilaterally Cardio: COMMON NORMALS: no JVD, regular rhythm, S1 normal heart sound present, S2 normal heart sound present and No murmurs present (Cardio) RHYTHM: regular rhythm HEART SOUNDS: S1 normal heart sound present and S2 normal heart sound present GI: COMMON NORMALS: Normal to inspection, nondistended, normoactive bowel sounds present, Soft to palpation and non-tender PALPATION: Yes Soft to palpation Extremity: COMMON NORMALS: no joint enlargement and no pedal edema Neuro: COMMON NORMALS: patient oriented x3 and moves all extremities OTHER: Sensation intact and symmetrical in bilateral lower extremities to light touch and temperature, although does have some chronic on and off numbness in her feet. Babinski negative. She is moving both extremities, but is very careful especially about moving the right side. Skin: COMMON NORMALS: no rashes or lesions noted GENERAL SKIN EXAM: no rashes or lesions noted Data : 12/18/19 22:35 12/18/19 22:35 A&P Assessment and plan (1) Prolapsed intervertebral disk: Feels pain and a lot of pressure in lumbar spine, just to the right of the center. Having a lot of cramping, occasional numbness traveling down the leg. Reports had occasional numbness on and off of her feet, somewhat worse than usual. Moderate stenosis of the central canal, flattening of the ventral thecal sac at L2-L3 and L4-L5, small disc bulge at L3-L4, mild foraminal narrowing greatest bilaterally at L5-S1 due to bony proliferative changes. No cord compression. Due to some concerning symptoms she had reported of near loss of bladder and near loss of bowel control (although did not actually lose control), was started on steroid therapy. At this time pending neurosurgical evaluation. Continue symptomatic management at this time with pain control, muscle relaxers, lidocaine patch, NSAIDs, and K pad, capsaicin cream. PT assessment. Status: Acute Qualifiers: Spinal region: lumbar Qualified Code(s): M51.26 - Other intervertebral disc displacement, lumbar region (2) Lumbar radiculopathy, acute: Status: Acute (3) Hot flashes: With all the above symptoms also noticed having some hot flashes in the last 1.5 days. Has had AALIYAH due to cervical cancer, however states ovaries were left in place. In same time did have extensive radiation. At this time she will monitor symptoms, and if these continue returning/persist a long time, will discuss with either her oncologist or primary care provider regarding utility of additional testing for menopause. Has not had any fever, chills, other signs of acute infection. Status: Acute Attestations Medical Necessity Statement*: Continue observation. Coding Level of Care Code Acute Tailings Man for [facility] Diagnoses Prolapsed intervertebral disk M51.26 Spinal region: lumbar Lumbar radiculopathy, acute M54.16 Hot flashes R23.2
[2019-12-19] MEDS: capsaicin 0.025% cream 60 gm 1 APPLIC TOPICAL (13:10)
--- NOTE | 2019-12-19 17:29 | P.CONIM_ITS ---
Providers/Reason For Consult Consulting Physican/Specialty*: Clifford Mims MD/Neurosurgery Reason for Consult*: Lumbar disc displacement, with acute radiculopathy Requesting Physcian: Dr. 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 She was admitted through the ED after presentation with severe low back pain/spasms radiating into the right buttock and thigh, with associated parasthesias. She described bladder urgency, without incontinence. 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 Imaging studies demonstrated multilevel disc disease, without severe canal stenosis. She was placed on the Hospitalist service for medical/pain management. A Neurosurgery consultation was requested. Review of Systems Const: Denies: fever(s) or chills Eyes: Denies: change in vision or blurry vision ENMT: Reports: throat pain, enlarged tonsils, odynophagia and nasal congestion; Denies: change in hearing or disequilibrium Card: Denies: chest pain or palpitations Resp: Denies: dyspnea, productive cough, non-productive cough, wheezing, stridor, pain on inspiration, change in phlegm color, hemoptysis or chest congestion GI: Denies: abdominal pain, nausea, vomiting or fecal incontinence : Reports: urinary urgency; Denies: difficulty voiding Musc: Reports: back pain and extremity pain; Denies: neck pain Skin/Breast: Denies: rash or sores Neuro: Reports: numbness in extremities, weakness in extremities and difficulty walking; Denies: Slurred speech present Psych: Reports: homicidal ideation; Denies: anxiety or depression Ellis/Lymph: Denies: easy bruising or easy bleeding All/Imm: Denies: throat swelling or tongue swelling Meds/Allergies Home Medications and Allergies Home Medications Medication Instructions Recorded Confirmed Last Taken Type PNV,calcium 72-iron,carb-folic 1 tab PO DAILY 12/18/19 12/18/19 12/17/19 History [ Plus] cyanocobalamin (vitamin B-12) 2,500 mcg SUBLINGUAL DAILY 12/18/19 12/18/1912/16/20 History [Vitamin B-12] cyclobenzaprine 10 mg PO BEDTIME 12/18/19 12/18/19 12/17/19 History gabapentin 600 mg PO BEDTIME 12/18/19 12/18/19 12/17/19 History ibuprofen 800 mg PO DAILY 12/18/19 12/18/19 12/17/19 History lorazepam 2 mg PO PRN PRN 12/18/19 12/18/19 Unknown History omeprazole magnesium [Prilosec OTC] 40 mg PO BEDTIME 12/18/19 12/18/19 12/17/19 History phentermine See Rx Instructions .ROUTE .COMPLEX 12/18/19 12/18/19 12/18/19 History tamsulosin [Flomax] 0.4 mg PO BEDTIME 12/18/19 12/18/19 12/17/19 History trazodone 100 mg PO BEDTIME 12/18/19 12/18/19 12/17/19 History Allergies Allergy/AdvReac Type Severity Reaction Status Date / Time aprepitant [From Emend] Allergy NA Verified 09/03/19 11:22 fosaprepitant [From Emend] Allergy NA Verified 09/03/19 11:22 venlafaxine [From Effexor] Allergy na Verified 12/19/19 01:31 Current Medications Current Medications Generic Name Dose Route Start Last Admin Trade Name Freq PRN Reason Stop Dose Admin Capsaicin 1 applic 12/19/19 13:00 12/19/19 13:10 Capsaicin TOPICAL 1 applic QID PRN Administration PAIN Cyclobenzaprine HCl 10 mg 12/19/19 02:14 12/19/19 10:55 Flexeril PO 10 mg BID PRN Administration pain Dexamethasone 4 mg 12/19/19 09:00 12/19/19 15:03 Decadron PO 4 mg QID OVIDIO Administration Ketorolac Tromethamine 30 mg 12/19/19 02:09 12/19/19 13:28 Toradol IVP 12/24/19 02:08 30 mg Q8H PRN Administration MODERATE PAIN Lidocaine 1 patch 12/19/19 09:00 12/19/19 09:11 Lidoderm 5% Patch TOPICAL 1 patch [id number] OVIDIO Administration Oxycodone/Acetaminophen 1 tab 12/19/19 02:12/19/19 09:05 Percocet 10-325 Mg PO 1 tab Q6H PRN Administration SEVERE PAIN PFSH Acute PFSH: Medical History (Updated 01/11/20 @ 10:13 by Marc Mims MD) History of cervical cancer Surgical History (Updated 01/11/20 @ 10:13 by Marc Mims MD) History of hysterectomy Previous section 03/2019, 2012 Social History (Updated 01/11/20 @ 10:14 by Marc Mims MD) Smoking and tobacco status: never smoked Alcohol intake: never Current occupation: Oncology Nurse Vitals/I&O/Wt Last Vital Signs Temp 98.2 F 12/19/19 11:55 Pulse 95 12/19/19 11:55 Resp 18 12/19/19 11:55 BP 119/77 12/19/19 11:55 Pulse Ox 96 12/19/19 11:55 12/19/19 12/19/19 12/19/19 06:59 14:59 22:59 Intake Total 240 / 240 480 / 480 Balance 240 / 240 480 / 480 Weight last 48 hrs Weight 200 lb Physical Exam Const: COMMON NORMALS: alert; apparent distress GENERAL APPEARANCE: cooperative and well kempt; not comfortable HENMT: COMMON NORMALS: normocephalic and hearing grossly normal bilaterally HEAD & SCALP: normocephalic FACE & SINUS: face symmetric Eye: COMMON NORMALS: conjunctivae normal ALIGNMENT: Yes alignment normal CONJUNCTIVA: Yes conjunctivae normal Neck/C-Spine: COMMON NORMALS: supple and no JVD Resp: COMMON NORMALS: normal respiratory effort EFFORT & INSPECTION: Yes able to speak in complete sentences and No stridor Cardio: COMMON NORMALS: no JVD Back/Pelvis: LUMBAR SPINE/LOWER BACK: Yes ROM limited, Yes pain with ROM, Yes lumbar spinal tenderness and No straight leg raise negative bilaterally PELVIS: Yes sciatic notch tenderness SACROILIAC JOINTS: No SI joints normal and Yes SI joint(s) abnormal SI joint details: tender to palpation Extremity: COMMON NORMALS: no clubbing, cyanosis or edema Neuro: COMMON NORMALS: moves all extremities SENSORIUM/ORIENTATION: Yes alert SPEECH: speech normal GAIT: Yes Antalgic gait present and Yes Assistive device used walker MOTOR EXAM: Abnormal motor strength present (diffuse lower extremity giveaway weakness related to pain) Psych: COMMON NORMALS: mental status grossly normal, Normal thought process present and speech normal APPEARANCE: Yes grossly normal and Yes well kempt ATTITUDE: Yes calm and Yes engaged ACTIVITY/MOTOR BEHAVIOR: Yes appropriate eye contact SPEECH: Yes normal speech MOOD & AFFECT: Yes euthymic mood THOUGHT PROCESS: Normal thought process present ATTENTION/CONCENTRATION: Yes attention grossly intact INSIGHT: Good insight present (Psych) JUDGEMENT: Good judgement present (Psych) Skin: COMMON NORMALS: no rashes or lesions noted GENERAL SKIN EXAM: no rashes or lesions noted Data Imaging^: MRI: My impression: Multilevel degenerative disc/joint disease is noted. There is facet arthropathy and a left paracentral disc protrusion at L2-L3 that result in dominant left lateral recess compromise. There is disc bulge and facet arthropathy at L3-L4, with lateral recess encroachment. There is a central disc protrusion at L4-L5, with slight asymmetry toward the right, that combines with facet arthropathy to produce canal and bilateral lateral recess stenosis. There is a broad-based disc protrusion at L5-S1, without significant associated canal stenosis. There is bilateral foraminal narrowing at that level. Radiologist's impression: 1. No acute bony abnormality. 2. Disc protrusion with moderate stenosis of the central canal and flattening of the ventral thecal sac at L2-L3 and L4-L5. Small disc bulge at L3-L4. There is mild foraminal narrowing greatest bilaterally at L5-S1 due to bony proliferative changes. A&P Assessment and plan (1) Displacement of lumbar disc with radiculopathy: Patient with acute back pain/spasms and lower extremity radiculopathy following a twisting incident at work. She continues to have significant symptoms in spite of aggressive medication management. Imaging studies demonstrate multilevel degenerative disc/joint disease. Suspect L4-L5 as the dominant source of symptoms. A lengthy discussion occurred with the patient re garding the clinical and radiographic findings. Diagnostic and treatment options were reviewed with the risks, potential benefits, and rationale for each. Questions were answered to her reported satisfaction. Emergent surgical intervention is not indicated. Recommendations are listed below. -Continue oral steroids for now. -Daily Physical Therapy. -Activity as tolerated, with fall precautions. -Medication adjustments to better manage spasms and neuropathic pain. -Re-evaluate for symptoms improvement tomorrow. -Discussed Pain Clinic interventional treatment trial. -Briefly discussed surgery. Status: Acute Consult Attestations Medical Necessity Statement: The patient is appropriate for in-hospital management of intractable pain related to lumbar disc/joint disease. Time Spent in Patient Care: Greater than 35 minutes (>than 50% of time spent in counselling and/or direct pt care on unit) . Coding Level of Care Code Acute Supervisor Paper Coating for [facility] Fwd Exam Comprehensive Diagnoses Displacement of lumbar disc with radiculopathy M51.16
[2019-12-19] MEDS: gabapentin 300 mg Capsule 900 MG PO (21:08)
[2019-12-19] MEDS: tamsulosin 0.4 mg Capsule PO (21:08)
[2019-12-19] MEDS: trazodone 100 mg Tablet PO (21:08)
[2019-12-19] MEDS: pantoprazole DR 40 mg Tablet PO (21:08)
[2019-12-20] VITALS (7 sets, daily range): BP systolic 97–116; BP diastolic 50–72; PULSE 61–87; RESP 18; TEMP 35.8–37.1; O2SAT 94–99
[2019-12-20] MEDS: ketorolac 30 mg/mL INJ IVP ×3 (00:19→10:44)
[2019-12-20] MEDS: dexamethasone 4 mg Tablet PO ×4 (00:19→16:08)
[2019-12-20] MEDS: lidocaine 5% Patch 1 PATCH TOPICAL (08:55)
[2019-12-20] MEDS: cyclobenzaprine 10 mg Tablet PO ×2 (08:57→21:30)
[2019-12-20] MEDS: LORazepam 2 mg Tablet PO (10:44)
--- NOTE | 2019-12-20 12:23 | PC.NURSE ---
Patient complains of spasms in her lower back with movement. Given PRN Flexeril and Ativan with minimal relief at this time. Patient only able to get up to restroom with walker with moderate weakness to her lower extremities.
[2019-12-20] MEDS: ondansetron 2 mg/ML SDV 2 mL 4 MG IVP (16:08)
[2019-12-20] MEDS: oxyCODONE-APAP 10-325 mg Tablet 1 TAB PO (16:08)
--- NOTE | 2019-12-20 18:20 | PM.PN ---
Subjective Subjective: Interval history: C/o back spasms and right thigh pain. Medications: Reviewed: Yes Vitals/I&O/Wt Last Vital Signs Temp 98.0 F 12/21/19 07:18 Pulse 71 12/21/19 07:18 Resp 19 H 12/21/19 07:18 BP 117/68 12/21/19 07:18 Pulse Ox 97 12/21/19 07:18 12/20/19 12/21/19 12/21/19 22:59 06:59 14:59 Intake Total 480 / 960 220 / 220 Output Total 1300 / 2500 Balance 480 / -240 -1300 / -1540 220 / 220 Physical Exam Const: COMMON NORMALS: alert; apparent distress GENERAL APPEARANCE: cooperative and well kempt; not comfortable HENMT: COMMON NORMALS: normocephalic and hearing grossly normal bilaterally HEAD & SCALP: normocephalic FACE & SINUS: face symmetric Eye: COMMON NORMALS: conjunctivae normal ALIGNMENT: Yes alignment normal CONJUNCTIVA: Yes conjunctivae normal Neck/C-Spine: COMMON NORMALS: supple and no JVD Resp: COMMON NORMALS: normal respiratory effort EFFORT & INSPECTION: Yes able to speak in complete sentences and No stridor Cardio: COMMON NORMALS: no JVD Back/Pelvis: LUMBAR SPINE/LOWER BACK: Yes ROM limited, Yes pain with ROM, Yes lumbar spinal tenderness and No straight leg raise negative bilaterally PELVIS: Yes sciatic notch tenderness (R > L) SACROILIAC JOINTS: No SI joints normal and Yes SI joint(s) abnormal SI joint details: tender to palpation Extremity: COMMON NORMALS: no clubbing, cyanosis or edema Neuro: COMMON NORMALS: moves all extremities SENSORIUM/ORIENTATION: Yes alert SPEECH: speech normal GAIT: Yes Assistive device used walker MOTOR EXAM: 5/5 motor strength present throughout (No focal lower extremity weakness.) and Abnormal motor strength present (Diffuse lower extremity giveaway weakness related to pain) Psych: COMMON NORMALS: mental status grossly normal, Normal thought process present and speech normal APPEARANCE: Yes grossly normal and Yes well kempt ATTITUDE: Yes calm and Yes engaged ACTIVITY/MOTOR BEHAVIOR: Yes appropriate eye contact SPEECH: Yes normal speech MOOD & AFFECT: Yes euthymic mood THOUGHT PROCESS: Normal thought process present ATTENTION/CONCENTRATION: Yes attention grossly intact INSIGHT: Good insight present (Psych) JUDGEMENT: Good judgement present (Psych) Skin: COMMON NORMALS: no rashes or lesions noted GENERAL SKIN EXAM: no rashes or lesions noted Data : 12/18/19 22:35 12/21/19 05:00 A&P Assessment and plan (1) Displacement of lumbar disc with radiculopathy: Patient continues with significant limitations related to low back pain/spasms and dominant right lower extremity symptoms. She also notes some intermittent paresthesias in the lateral aspect of the foot, bilaterally. There has been some improvement since admission. She notes transient symptom relief with medications. Recommend continued daily PT, as tolerated. Will change dexamethasone to IV in hopes of boosting effect and lowering GI irritation. Will check AM BMP due to Toradol use and remote history of renal issues related to chemotherapy. Unable to talk with provider, but left message at Pain Clinic. Awaiting word on options for TARA trial while patient is in the hospital. Status: Acute Attestations Medical Necessity Statement*: Patient is appropriate for inpatient management of intractable pain/spasm related to acute radiculopathy. She would not be reasonable for discharge home in current condition. Time Spent in Patient Care: less than 15 minutes (>than 50% of time spent in counselling and/or direct pt care on unit). Coding Level of Care Code Acute Machine Shorthand Teacher for [facility] Diagnoses Displacement of lumbar disc with radiculopathy M51.16
--- NOTE | 2019-12-20 19:20 | PM.PN ---
Subjective Subjective: Interval history: Still having persistent severe intermittent cramping of lower back, especially right lower extremity. Intermittent tingling/numbness of feet. Still significant pain with activity. States that Toradol has been helping her, but expressed concern regarding her kidney function given history of kidney injury. Has had no loss of bowel or bladder control. Vitals/I&O/Wt Last Vital Signs Temp 98.7 F 12/20/19 15:34 Pulse 83 12/20/19 15:34 Resp 18 12/20/19 16:08 BP 107/58 12/20/19 15:34 Pulse Ox 97 12/20/19 15:34 12/20/19 12/20/19 12/20/19 06:59 14:59 22:59 Intake Total 480 / 480 480 / 960 Output Total 350 / 350 1200 / 1200 Balance -350 / 130 -720 / -720 480 / -240 Physical Exam Const: COMMON NORMALS: patient oriented x3 NUTRITIONAL APPEARANCE: overweight OTHER: Antalgic positioning. HENMT: COMMON NORMALS: oropharynx normal Neck/C-Spine: COMMON NORMALS: no JVD Resp: COMMON NORMALS: normal respiratory effort and clear to auscultation bilaterally AUSCULTATION: clear to auscultation bilaterally Cardio: COMMON NORMALS: no JVD, regular rhythm, S1 normal heart sound present, S2 normal heart sound present and No murmurs present (Cardio) RHYTHM: regular rhythm HEART SOUNDS: S1 normal heart sound present and S2 normal heart sound present GI: COMMON NORMALS: Normal to inspection, nondistended, normoactive bowel sounds present, Soft to palpation and non-tender PALPATION: Yes Soft to palpation Extremity: COMMON NORMALS: no joint enlargement and no pedal edema Neuro: COMMON NORMALS: patient oriented x3 and moves all extremities OTHER: Sensation intact and symmetrical in bilateral lower extremities to light touch and temperature, although does have some chronic on and off numbness in her feet. She is moving both extremities. Skin: COMMON NORMALS: no rashes or lesions noted GENERAL SKIN EXAM: no rashes or lesions noted Data : 12/18/19 22:35 12/18/19 22:35 A&P Assessment and plan (1) Prolapsed intervertebral disk: Pending reassessment by neurosurgery. Consultation note appreciated. Given persistent symptoms at this time, continue conservative management as well as oral steroids until indicated otherwise by neurosurgery. Consideration is also given to possible pain clinic intervention. Given concern of renal function, for now will change Toradol to as needed basis. Reassess BMP in the morning. Status: Acute Qualifiers: Spinal region: lumbar Qualified Code(s): M51.26 - Other intervertebral disc displacement, lumbar region (2) Lumbar radiculopathy, acute: Status: Acute (3) Hot flashes: With all the above symptoms also noticed having some hot flashes in 1.5 days prior to admission. Has had AALIYAH due to cervical cancer, however states ovaries were left in place. In same time did have extensive radiation. At this time she will monitor symptoms, and if these continue returning/persist a long time, will discuss with either her oncologist or primary care provider regarding utility of additional testing for menopause. Has not had any fever, chills, other signs of acute infection. Status: Acute Attestations Medical Necessity Statement*: Continue observation, conservative management for displacement of lumbar disc with radiculopathy. Coding Level of Care Code Acute Spinner Cap Frame for [facility] Diagnoses Prolapsed intervertebral disk M51.26 Spinal region: lumbar Lumbar radiculopathy, acute M54.16 Hot flashes R23.2
[2019-12-20] MEDS: dexamethasone 4 mg/mL INJ IVP (21:05)
[2019-12-20] MEDS: trazodone 100 mg Tablet PO (21:29)
[2019-12-20] MEDS: gabapentin 300 mg Capsule 900 MG PO (21:29)
[2019-12-20] MEDS: tamsulosin 0.4 mg Capsule PO (21:29)
[2019-12-20] MEDS: pantoprazole DR 40 mg Tablet PO (21:30)
[2019-12-21] VITALS (8 sets, daily range): BP systolic 117–120; BP diastolic 61–71; PULSE 56–98; RESP 18–19; TEMP 36.4–36.8; O2SAT 96–98
[2019-12-21] MEDS: dexamethasone 4 mg/mL INJ IVP ×4 (02:23→21:57)
[2019-12-21] MEDS: ketorolac 30 mg/mL INJ IVP ×4 (02:23→21:24)
[2019-12-21] MEDS: LORazepam 2 mg Tablet PO (02:23)
[2019-12-21 06:34] LABS: Blood Urea Nitrogen 23 mg/dL (6-20); Calcium 8.7 mg/dL (8.5-10.5); Carbon Dioxide 25 mmol/L (22-29); Chloride 102 mmol/L (98-107); Glomerular Filtration Rate 53.1 mL/min (90-130); Glucose 172 mg/dL (65-115); Osmolality Calculated 291 mOsm/kg (285-295); Sodium 140 mmol/L (136-145)
[2019-12-21] MEDS: oxyCODONE-APAP 10-325 mg Tablet 1 TAB PO ×2 (06:45→17:59)
--- NOTE | 2019-12-21 09:58 | PM.PN ---
Subjective Subjective: Interval history: Rough night. Reports delay in initiation of IV steroids related to port access. Vitals/I&O/Wt Last Vital Signs Temp 98.0 F 12/21/19 07:18 Pulse 71 12/21/19 07:18 Resp 19 H 12/21/19 07:18 BP 117/68 12/21/19 07:18 Pulse Ox 97 12/21/19 07:18 12/20/19 12/21/19 12/21/19 22:59 06:59 14:59 Intake Total 480 / 960 220 / 220 Output Total 1300 / 2500 Balance 480 / -240 -1300 / -1540 220 / 220 Physical Exam Const: COMMON NORMALS: alert; apparent distress GENERAL APPEARANCE: cooperative and well kempt; not comfortable HENMT: COMMON NORMALS: normocephalic HEAD & SCALP: normocephalic FACE & SINUS: face symmetric Eye: COMMON NORMALS: conjunctivae normal ALIGNMENT: Yes alignment normal CONJUNCTIVA: Yes conjunctivae normal Neck/C-Spine: COMMON NORMALS: supple and no JVD Resp: COMMON NORMALS: normal respiratory effort EFFORT & INSPECTION: Yes able to speak in complete sentences and No stridor Cardio: COMMON NORMALS: no JVD Back/Pelvis: LUMBAR SPINE/LOWER BACK: Yes ROM limited, Yes pain with ROM and No straight leg raise negative bilaterally Extremity: COMMON NORMALS: no clubbing, cyanosis or edema Neuro: COMMON NORMALS: moves all extremities SENSORIUM/ORIENTATION: Yes alert SPEECH: speech normal GAIT: Yes Assistive device used walker MOTOR EXAM: 5/5 motor strength present throughout (No focal lower extremity weakness.) and Abnormal motor strength present (Diffuse lower extremity giveaway weakness related to pain) Psych: COMMON NORMALS: Normal thought process present and speech normal APPEARANCE: Yes well kempt ATTITUDE: Yes calm and Yes engaged ACTIVITY/MOTOR BEHAVIOR: Yes appropriate eye contact SPEECH: Yes normal speech MOOD & AFFECT: Yes euthymic mood THOUGHT PROCESS: Normal thought process present ATTENTION/CONCENTRATION: Yes attention grossly intact INSIGHT: Good insight present (Psych) JUDGEMENT: Good judgement present (Psych) Skin: COMMON NORMALS: no rashes or lesions noted GENERAL SKIN EXAM: no rashes or lesions noted Data : 12/18/19 22:35 12/21/19 05:00 A&P Assessment and plan (1) Displacement of lumbar disc with radiculopathy: Continued low back pain/spasms and dominant right thigh pain reported. Difficult to assess early benefit of IV steroids due to issues related to PO => IV transition. She continues to report transient benefit with medications. Discussed options in detail. Continue conservative management for now. Daily PT, as tolerated. Plan to stop Flexeril, which patient has used chronically. Plan to stop Ativan, which patient reports is effective but short-lived. Initiate Scheduled po Valium trial for severe spasms. Continue IV Decadron. Resume scheduled Toradol. Repeat BMP in AM. Continue PRN oxycodone. Will contact [facility] again regarding injection trial options. Status: Acute Attestations Medical Necessity Statement*: Patient is appropriate for inpatient management of intractable pain/spasm related to acute radiculopathy. She would not be reasonable for discharge home in current condition. Time Spent in Patient Care: less than 15 minutes (>than 50% of time spent in counselling and/or direct pt care on unit). Coding Level of Care Code Acute Gallery Or Museum Attendant for Robin Sullivan Diagnoses Displacement of lumbar disc with radiculopathy M51.16
[2019-12-21] MEDS: diazePAM 5 mg Tablet 10 MG PO ×3 (10:14→21:23)
[2019-12-21] MEDS: ondansetron 2 mg/ML SDV 2 mL 4 MG IVP (14:42)
[2019-12-21] MEDS: morphine 4 mg/mL SDV 1 mL IVP (19:30)
--- NOTE | 2019-12-21 20:23 | PC.NURSE ---
Morphine scanned and administered but unsaved initially. Morphine was administered at 1930 by Jamel Upton RN, verified and witnessed by Jamel Little RN.
[2019-12-21] MEDS: gabapentin 300 mg Capsule 900 MG PO (21:23)
[2019-12-21] MEDS: pantoprazole DR 40 mg Tablet PO (21:24)
[2019-12-21] MEDS: tamsulosin 0.4 mg Capsule PO (21:24)
[2019-12-21] MEDS: trazodone 100 mg Tablet PO (21:24)
--- NOTE | 2019-12-21 21:34 | PM.PN ---
Subjective Subjective: Interval history: Had a very rough night, today still with persistent/intermittent cramping, spasms, lower back pain, pain radiating into the right leg. Poor tolerance of getting up and around, and poorly tolerating physical therapy. She expresses feeling discouraged as she is only 29 and normally a very athletic person. Vitals/I&O/Wt Last Vital Signs Temp 98.0 F 12/21/19 19:55 Pulse 67 12/21/19 19:55 Resp 18 12/21/19 19:55 BP 120/71 12/21/19 19:55 Pulse Ox 97 12/21/19 19:55 12/21/19 12/21/19 12/21/19 06:59 14:59 22:59 Intake Total 580 / 580 Output Total 1300 / 2500 600 / 600 Balance -1300 / -1540 580 / 580 -600 / -20 Physical Exam Const: COMMON NORMALS: patient oriented x3 NUTRITIONAL APPEARANCE: overweight OTHER: Antalgic positioning. Moving very cautiously. Surrounded by pillows. HENMT: COMMON NORMALS: oropharynx normal Neck/C-Spine: COMMON NORMALS: no JVD Resp: COMMON NORMALS: normal respiratory effort and clear to auscultation bilaterally AUSCULTATION: clear to auscultation bilaterally Cardio: COMMON NORMALS: no JVD, regular rhythm, S1 normal heart sound present, S2 normal heart sound present and No murmurs present (Cardio) RHYTHM: regular rhythm HEART SOUNDS: S1 normal heart sound present and S2 normal heart sound present GI: COMMON NORMALS: Normal to inspection, nondistended, normoactive bowel sounds present, Soft to palpation and non-tender PALPATION: Yes Soft to palpation Extremity: COMMON NORMALS: no joint enlargement and no pedal edema Neuro: COMMON NORMALS: patient oriented x3 and moves all extremities OTHER: Sensation intact and symmetrical in bilateral lower extremities to light touch and temperature, although does have some chronic on and off numbness in her feet. She is moving both extremities. Skin: COMMON NORMALS: no rashes or lesions noted GENERAL SKIN EXAM: no rashes or lesions noted Data : 12/18/19 22:35 12/21/19 05:00 A&P Assessment and plan (1) Prolapsed intervertebral disk: Continue conservative measures as recommended by neurosurgery, including IV steroid, Toradol, p.o. Valium, with arrangements underway for assessment by pain management service. Continue discussion regarding further steps and if there is lack of improvement. Status: Acute Qualifiers: Spinal region: lumbar Qualified Code(s): M51.26 - Other intervertebral disc displacement, lumbar region (2) Lumbar radiculopathy, acute: Status: Acute (3) Hot flashes: With all the above symptoms also noticed having some hot flashes in 1.5 days prior to admission. Has had AALIYAH due to cervical cancer, however states ovaries were left in place. In same time did have extensive radiation. At this time she will monitor symptoms, and if these continue returning/persist a long time, will discuss with either her oncologist or primary care provider regarding utility of additional testing for menopause. Has not had any fever, chills, other signs of acute infection. Status: Acute Attestations Medical Necessity Statement*: Continue hospitalization for intractable back pain, declining functional capacity due to displacement of lumbar disc with radiculopathy. Coding Level of Care Code Acute Carton Stenciler for Robin Sullivan Diagnoses Prolapsed intervertebral disk M51.26 Spinal region: lumbar Lumbar radiculopathy, acute M54.16 Hot flashes R23.2
[2019-12-22] VITALS (9 sets, daily range): BP systolic 113–127; BP diastolic 64–83; PULSE 62–83; RESP 16–20; TEMP 36.4–37; O2SAT 95–98
--- NOTE | 2019-12-22 00:49 | PC.NURSE ---
Vitals not completed for midnight due to Pt finally being able to sleep.
[2019-12-22] MEDS: dexamethasone 4 mg/mL INJ IVP ×4 (03:38→21:10)
[2019-12-22] MEDS: ketorolac 30 mg/mL INJ IVP ×4 (03:38→21:09)
[2019-12-22] MEDS: diazePAM 5 mg Tablet 10 MG PO ×3 (03:38→16:46)
[2019-12-22 06:28] LABS: Anion Gap 15.4 (5-19); Blood Urea Nitrogen 26 mg/dL (6-20); Carbon Dioxide 24 mmol/L (22-29); Chloride 105 mmol/L (98-107); Glomerular Filtration Rate 58.7 mL/min (90-130); Glucose 158 mg/dL (65-115); Osmolality Calculated 290 mOsm/kg (285-295); Potassium 4.4 mmol/L (3.5-5.1); Sodium 140 mmol/L (136-145)
[2019-12-22] MEDS: oxyCODONE-APAP 10-325 mg Tablet 1 TAB PO ×3 (07:27→18:54)
[2019-12-22] MEDS: ondansetron 2 mg/ML SDV 2 mL 4 MG IVP ×3 (11:21→21:09)
--- NOTE | 2019-12-22 14:16 | ECG_ITS ---
Measurements Intervals [place] Rate: 62 P: 38 NE: 141 QRS: 36 QRSD: 79 T: 44 QT: 412 QTc: 420 SINUS RHYTHM WITH SINUS ARRHYTHMIA No previous ECG available for comparison Electronically Signed On 12-23-2019 11:10:15 CDT by Ankur Wilkins MD [email or web address]
--- NOTE | 2019-12-22 17:30 | PC.NURSE ---
Dr Mims in patient room for consult.
--- NOTE | 2019-12-22 19:11 | PC.NURSE ---
Spoke with Dr Olson see new orders.
--- NOTE | 2019-12-22 20:01 | PM.PN ---
Subjective Subjective: Interval history: Could not work well with physical therapy today. Recurrent spasms. Becoming increasingly frustrated with lack of improvement. Yesterday afternoon episode of severe pain requiring IV morphine. Vitals/I&O/Wt Last Vital Signs Temp 98.6 F 12/22/19 19:54 Pulse 67 12/22/19 19:54 Resp 16 12/22/19 19:54 BP 127/83 12/22/19 19:54 Pulse Ox 98 12/22/19 19:54 12/22/19 12/22/19 12/22/19 06:59 14:59 22:59 Intake Total 480 / 480 Output Total 650 / 1250 600 / 600 400 / 1000 Balance -650 / -670 -120 / -120 -400 / -520 Physical Exam Const: COMMON NORMALS: patient oriented x3 NUTRITIONAL APPEARANCE: overweight OTHER: Asleep, but wakes up easily. HENMT: COMMON NORMALS: oropharynx normal Neck/C-Spine: COMMON NORMALS: no JVD Resp: COMMON NORMALS: normal respiratory effort and clear to auscultation bilaterally AUSCULTATION: clear to auscultation bilaterally Cardio: COMMON NORMALS: no JVD, regular rhythm, S1 normal heart sound present, S2 normal heart sound present and No murmurs present (Cardio) RHYTHM: regular rhythm HEART SOUNDS: S1 normal heart sound present and S2 normal heart sound present GI: COMMON NORMALS: Normal to inspection, nondistended, normoactive bowel sounds present, Soft to palpation and non-tender PALPATION: Yes Soft to palpation Extremity: COMMON NORMALS: no joint enlargement and no pedal edema Neuro: COMMON NORMALS: patient oriented x3 and moves all extremities OTHER: Sensation intact and symmetrical in bilateral lower extremities to light touch and temperature, although does have some chronic on and off numbness in her feet. She is moving both extremities. Skin: COMMON NORMALS: no rashes or lesions noted GENERAL SKIN EXAM: no rashes or lesions noted Data : 12/18/19 22:35 12/22/19 04:58 A&P Assessment and plan (1) Prolapsed intervertebral disk: So far has not shown significant improvement. Very limited ability to work with PT. Yesterday episode of severe pain, requiring IV morphine despite all the oral medications. Unfortunately pain medicine has been unavailable due to holiday, and likely will not be back until [place] per discussion with neurosurgery. Per discussion the appears that she may end up needing surgery, for which she states would like to transfer to [facility] as all of her other doctors are there. Will reassess tomorrow and if still not improving and still preferring to be evaluated for surgical candidacy at [facility] will seek transfer. Continue conservative measures as recommended by neurosurgery, including IV steroid, Toradol, p.o. Ativan, Percocet, gabapentin, lidocaine patch, capsaicin and heat. Status: Acute Qualifiers: Spinal region: lumbar Qualified Code(s): M51.26 - Other intervertebral disc displacement, lumbar region (2) Lumbar radiculopathy, acute: As above. Status: Acute (3) Hot flashes: With all the above symptoms also noticed having some hot flashes in 1.5 days prior to admission. Has had AALIYAH due to cervical cancer, however states ovaries were left in place. In same time did have extensive radiation. At this time she will monitor symptoms, and if these continue returning/persist a long time, will discuss with either her oncologist or primary care provider regarding utility of additional testing for menopause. Has not had any fever, chills, other signs of acute infection. Status: Acute Attestations Medical Necessity Statement*: Continue hospitalization for assessment and management of intractable pain, declining functional capacity due to displacement of lumbar disc with radiculopathy without improvement. Coding Level of Care Code Acute Art Gallery Director for Robin Fwd Diagnoses Prolapsed intervertebral disk M51.26 Spinal region: lumbar Lumbar radiculopathy, acute M54.16 Hot flashes R23.2
[2019-12-22] MEDS: pantoprazole DR 40 mg Tablet PO (21:10)
[2019-12-22] MEDS: LORazepam 2 mg Tablet PO (21:10)
[2019-12-22] MEDS: tamsulosin 0.4 mg Capsule PO (21:10)
[2019-12-22] MEDS: gabapentin 300 mg Capsule 900 MG PO (21:10)
[2019-12-22] MEDS: trazodone 100 mg Tablet PO (21:11)
[2019-12-23] VITALS (9 sets, daily range): BP systolic 101–117; BP diastolic 61–77; PULSE 65–86; RESP 18–20; TEMP 36.4–36.9; O2SAT 94–100
[2019-12-23] MEDS: oxyCODONE-APAP 10-325 mg Tablet 1 TAB PO ×4 (01:05→17:43)
[2019-12-23] MEDS: dexamethasone 4 mg/mL INJ IVP ×4 (01:05→20:26)
[2019-12-23] MEDS: ketorolac 30 mg/mL INJ IVP ×4 (04:24→20:27)
[2019-12-23 06:19] LABS: Blood Urea Nitrogen 22 mg/dL (6-20); Calcium 8.9 mg/dL (8.5-10.5); Carbon Dioxide 26 mmol/L (22-29); Chloride 101 mmol/L (98-107); Glomerular Filtration Rate 53.1 mL/min (90-130); Glucose 166 mg/dL (65-115); Osmolality Calculated 288 mOsm/kg (285-295); Sodium 139 mmol/L (136-145)
[2019-12-23] MEDS: LORazepam 2 mg Tablet PO ×4 (08:24→20:27)
[2019-12-23] MEDS: polyethylene glycol 3350 Pkt 17 gm PO ×2 (08:24→17:43)
[2019-12-23] MEDS: ondansetron 2 mg/ML SDV 2 mL 4 MG IVP ×2 (14:11→20:26)
--- NOTE | 2019-12-23 16:08 | PC.NURSE ---
Patient report called to Jamel Tapia Rn @ [facility]
--- NOTE | 2019-12-23 17:42 | PM.TDS ---
Transfer Summary Providers Date of Admission: 12/19/19 00:03 Date of Discharge: 12/23/19 Attending Provider at Admission: Nazanin Valdivia MD Attending Provider at Transfer: José Manuel Arredondo Anticipated Date of Transfer: Anticipated date of transfer: 12/23/19 Receiving Facility & Provider: Receiving Provider: [] Receiving facility: [] Diagnoses at Discharge Discharge Diagnosis (1) Prolapsed intervertebral disk: Status: Acute Qualifiers: Spinal region: lumbar Qualified Code(s): M51.26 - Other intervertebral disc displacement, lumbar region (2) Lumbar radiculopathy, acute: Status: Acute (3) Hot flashes: Status: Acute Reason for Visit Reason for Visit: Reason For Visit: HERNIATED DISK Hospital Course Hospital Course: 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 Pain started after at work she pivoted to reach for a vitals machine. Denies any recent fall or trauma. Associated also occasional numbness in the feet, although this is somewhat complicated by somewhat chronic symptoms. On multiple occasions has felt that she was going to lose control of her bladder or bowel, although has not. CT thoracic and lumbar spine were performed, with lumbar CT showing disc protrusion with moderate stenosis of central canal and flattening of the ventral thecal sac at L2-L3 and L4-L5, small disc bulge at L3-L4, mild foraminal narrowing greatest bilaterally at L5-S1. Due to severity of her symptoms, initially inability to ambulate or reposition, was kept in the hospital for trial of supportive management. She was treated with IV Decadron (initially transitioned to p.o., however, due to persistent symptoms transition back to IV for the remainder of the hospitalization), IV NSAID with Toradol (with renal monitoring due to history of RACHELLE), muscle relaxants including Flexeril, Ativan, Valium, as well as p.o. and intermittently IV opioid with bowel regimen started. Assessment by pain management was sought by the neurosurgeon, but unable to obtain due to long weekend. She was not able to tolerate significant therapy with PT. Persistent symptoms with pain, regarding cramping with legs feeling like jelly , inability to stand or walk longer than a few seconds, precluded return home. She had discussions with neurosurgery here with regards to utility and timing of surgical intervention, with things increasingly appearing that this may be unavoidable should there be no additional improvement. Due to having her prior treatments over at [facility], she had discussed on several occasions with the neurosurgeon and hospitalist team requesting to be transferred for additional care, assessment for surgical candidacy and the procedure there, and was kindly accepted for transfer this afternoon. Physical Exam Const: COMMON NORMALS: patient oriented x3 NUTRITIONAL APPEARANCE: overweight OTHER: Awake, alert. HENMT: COMMON NORMALS: oropharynx normal Neck/C-Spine: COMMON NORMALS: no JVD Resp: COMMON NORMALS: normal respiratory effort and clear to auscultation bilaterally AUSCULTATION: clear to auscultation bilaterally Cardio: COMMON NORMALS: no JVD, regular rhythm, S1 normal heart sound present, S2 normal heart sound present and No murmurs present (Cardio) RHYTHM: regular rhythm HEART SOUNDS: S1 normal heart sound present and S2 normal heart sound present GI: COMMON NORMALS: Normal to inspection, nondistended, normoactive bowel sounds present, Soft to palpation and non-tender PALPATION: Yes Soft to palpation Extremity: COMMON NORMALS: no joint enlargement and no pedal edema Neuro: COMMON NORMALS: patient oriented x3 and moves all extremities OTHER: Sensation intact and symmetrical in bilateral lower extremities to light touch and temperature, although does have some chronic on and off numbness in her feet. She is moving both extremities, although with bilatearal weakness, legs feel like jelly . Skin: COMMON NORMALS: no rashes or lesions noted GENERAL SKIN EXAM: no rashes or lesions noted TS Data Data Completed and Pending: Completed Studies During Hospitalization Category Date Time Status CT lumbar spine w o con* [id number] Urgen t Cat Scan 12/18/19 17:31 Completed MR lumbar spine w o/w con [id number] Urge nt MRI 12/18/19 18:36 Completed MR thoracic spine wo/w [id number] Urgent MRI 12/18/19 18:36 Completed Pending at discharge Category Date Time Status Basic Metabolic P vidal AM LABS Lab 12/24/19 04:00 Ordered Basic Metabolic P vidal AM LABS Lab 12/25/19 04:00 Ordered Labs from last 24 hours 12/23/19 05:35 Sodium 139 Potassium 4.0 Chloride 101 Carbon Dioxide 26 Anion Gap 16.0 BUN 22 H Creatinine 1.2 H GFR Calculation 53.1 L Glucose 166 H Calculated Osmolal ity 288 Calcium 8.9 Vitals: Last Vital Signs Temp 98.5 F 12/23/19 16:00 Pulse 71 12/23/19 16:00 Resp 19 H 12/23/19 16:00 BP 114/77 12/23/19 16:00 Pulse Ox 95 12/23/19 16:00 TS Medications Medications Home Medications PNV,calcium 72-iron,carb-folic [ Plus] 1 tab PO DAILY 12/18/19 [History Confirmed 12/18/19] cyanocobalamin (vitamin B-12) [Vitamin B-12] 2,500 mcg SUBLINGUAL DAILY 12/18/19 [History Confirmed 12/18/19] cyclobenzaprine 10 mg PO BEDTIME 12/18/19 [History Confirmed 12/18/19] gabapentin 600 mg PO BEDTIME 12/18/19 [History Confirmed 12/18/19] ibuprofen 800 mg PO DAILY 12/18/19 [History Confirmed 12/18/19] lorazepam 2 mg PO PRN PRN 12/18/19 [History Confirmed 12/18/19] omeprazole magnesium [Prilosec OTC] 40 mg PO BEDTIME 12/18/19 [History Confirmed 12/18/19] phentermine See Rx Instructions .ROUTE .COMPLEX 12/18/19 [History Confirmed 12/18/19] tamsulosin [Flomax] 0.4 mg PO BEDTIME 12/18/19 [History Confirmed 12/18/19] trazodone 100 mg PO BEDTIME 12/18/19 [History Confirmed 12/18/19] Active Medications Bisacodyl (Dulcolax) 10 mg PO DAILY PRN PRN Reason: CONSTIPATION Capsaicin (Capsaicin) 1 applic TOPICAL QID PRN PRN Reason: PAIN Last Admin: 12/19/19 13:10 Dose: 1 applic Documented by: Dexamethasone (Decadron) 4 mg IVP Q6H OVIDIO Last Admin: 12/23/19 14:11 Dose: 4 mg Documented by: Gabapentin (Neurontin) 900 mg PO BEDTIME [facility] Last Admin: 12/22/19 21:10 Dose: 900 mg Documented by: Ketorolac Tromethamine (Toradol) 30 mg IVP Q6H [facility] Stop: 12/26/19 09:29 Last Admin: 12/23/19 14:11 Dose: 30 mg Documented by: Lidocaine (Lidoderm 5% Patch) 1 patch TOPICAL [id number] [facility] Last Admin: 12/23/19 08:24 Dose: Not Given Documented by: Lorazepam (Ativan) 2 mg PO QID [facility] Last Admin: 12/23/19 12:33 Dose: 2 mg Documented by: Naloxone HCl (Narcan) 0.1 mg IVP Q2M PRN PRN Reason: OPIATERV Ondansetron HCl (Zofran) 4 mg IVP Q6H PRN PRN Reason: vomiting, or N/V if npo Last Admin: 12/23/19 14:11 Dose: 4 mg Documented by: Oxycodone HCl (Oxycodone Ir) 5 mg PO Q4H PRN PRN Reason: MODERATE PAIN Oxycodone/Acetaminophen (Percocet 10-325 Mg) 1 tab PO Q6H [facility] Last Admin: 12/23/19 12:33 Dose: 1 tab Documented by: Pantoprazole Sodium (Protonix) 40 mg PO BEDTIME [facility] Last Admin: 12/22/19 21:10 Dose: 40 mg Documented by: Perphenazine (Trilafon) 4 mg PO TID PRN PRN Reason: NAUSEA Polyethylene Glycol (Miralax) 17 gm PO BID [facility] Last Admin: 12/23/19 08:24 Dose: 17 gm Documented by: Tamsulosin HCl (Flomax) 0.4 mg PO BEDTIME [facility] Last Admin: 12/22/19 21:10 Dose: 0.4 mg Documented by: Trazodone HCl (Desyrel) 100 mg PO BEDTIME [facility] Last Admin: 12/22/19 21:11 Dose: 100 mg Documented by: Discharge Plan Discharge Patient Disposition: Xfer Short-Term Hosp Condition: Stable Prescriptions: No Action cyclobenzaprine 10 mg Tablet 10 mg PO BEDTIME RF: 0 Vitamin B-12 2,500 mcg Tablet, Sublingual 2,500 mcg SUBLINGUAL DAILY RF: 0 trazodone 50 mg Tablet 100 mg PO BEDTIME RF: 0 ibuprofen 800 mg Tablet 800 mg PO DAILY RF: 0 phentermine 37.5 mg Tablet See Rx Instructions .ROUTE .COMPLEX RF: 0 Flomax 0.4 mg Capsule 0.4 mg PO BEDTIME RF: 0 lorazepam 2 mg Tablet 2 mg PO PRN PRN (Reason: UNKNOWN) RF: 0 gabapentin 300 mg Capsule 600 mg PO BEDTIME RF: 0 Prilosec OTC 20 mg Tablet,Delayed Release (Dr/Ec) 40 mg PO BEDTIME RF: 0 Plus 29 mg iron- 1 mg Tablet 1 tab PO DAILY RF: 0 Transfer Attestations Time Spent in Transfer Care*: greater than 30 min Quality Metrics Clinical Quality Measures: During this hospital stay, did patient experience: None Coding Level of Care Code Acute Damage Cutter for Chg Fwd Diagnoses Prolapsed intervertebral disk M51.26 Spinal region: lumbar Lumbar radiculopathy, acute M54.16 Hot flashes R23.2
--- NOTE | 2019-12-23 20:12 | PC.NURSE ---
Called [facility]. Next ambulance up to transport just left [place]. Will call again in 2 hours.
[2019-12-23] MEDS: trazodone 100 mg Tablet PO (20:27)
[2019-12-23] MEDS: gabapentin 300 mg Capsule 900 MG PO (20:27)
[2019-12-23] MEDS: tamsulosin 0.4 mg Capsule PO (20:27)
[2019-12-23] MEDS: pantoprazole DR 40 mg Tablet PO (20:27)
--- NOTE | 2019-12-23 23:32 | PM.PN ---
Subjective Subjective: Interval history: A little better. Vitals/I&O/Wt Last Vital Signs Temp 98.2 F 12/23/19 20:00 Pulse 82 12/23/19 20:00 Resp 18 12/23/19 20:00 BP 117/67 12/23/19 20:00 Pulse Ox 100 12/23/19 20:00 12/23/19 12/23/19 12/24/19 14:59 22:59 06:59 Intake Total 480 / 480 360 / 840 Output Total 500 / 500 Balance 480 / 480 -140 / 340 Physical Exam Const: COMMON NORMALS: alert; apparent distress GENERAL APPEARANCE: cooperative and well kempt; not comfortable (with movement) HENMT: COMMON NORMALS: normocephalic HEAD & SCALP: normocephalic FACE & SINUS: face symmetric Eye: COMMON NORMALS: conjunctivae normal ALIGNMENT: Yes alignment normal CONJUNCTIVA: Yes conjunctivae normal Neck/C-Spine: COMMON NORMALS: supple and no JVD Resp: COMMON NORMALS: normal respiratory effort EFFORT & INSPECTION: Yes able to speak in complete sentences and No stridor Cardio: COMMON NORMALS: no JVD Back/Pelvis: LUMBAR SPINE/LOWER BACK: Yes pain with ROM SACROILIAC JOINTS: Yes SI joint(s) abnormal SI joint details: tender to palpation Extremity: COMMON NORMALS: no clubbing, cyanosis or edema Neuro: COMMON NORMALS: moves all extremities SENSORIUM/ORIENTATION: Yes alert SPEECH: speech normal GAIT: Yes Assistive device used walker MOTOR EXAM: 5/5 motor strength present throughout (No focal lower extremity weakness.) and Abnormal motor strength present (Diffuse lower extremity giveaway weakness related to pain) Psych: COMMON NORMALS: Normal thought process present and speech normal APPEARANCE: Yes well kempt ATTITUDE: Yes calm and Yes engaged ACTIVITY/MOTOR BEHAVIOR: Yes appropriate eye contact SPEECH: Yes normal speech MOOD & AFFECT: Yes euthymic mood THOUGHT PROCESS: Normal thought process present ATTENTION/CONCENTRATION: Yes attention grossly intact INSIGHT: Good insight present (Psych) JUDGEMENT: Good judgement present (Psych) Skin: COMMON NORMALS: no rashes or lesions noted GENERAL SKIN EXAM: no rashes or lesions noted Data : 12/18/19 22:35 12/23/19 05:35 A&P Assessment and plan (1) Displacement of lumbar disc with radiculopathy: Patient continues with significant limitations related to low back pain/spasms and dominant right lower extremity symptoms. She also notes some intermittent paresthesias in the lateral aspect of the foot, bilaterally. There has been some improvement since admission, but she continues to be severely limited by her pain and spasms. She notes transient symptom relief with medications. Reviewed options. Recommend continued daily PT, as tolerated. Continue current steroid, NSAID, muscle relaxant and narcotic regimen, as it appears to provide a better balance of symptom control and manageable adverse effects than prior combinations. Creatinine has also been stable, and GI irritation is tolerable on this regimen. A Pain Clinic injection trial has been discussed, but will not be available until at least 12/25/2019 due to the holiday weekend. Surgical intervention has also been discussed. She is interested in surgery, but wants any surgery done at [facility] in [place] where she has had extensive prior medical care. Transfer, if requested, would be coordinated by the Hospitalist service. She has no indication for emergent surgery at this time. Status: Acute Attestations Medical Necessity Statement*: Patient continues to be appropriate for in-hospital management of severe, intractable pain/spasms related to lumbar disc/joint disease. Time Spent in Patient Care: less than 15 minutes (>than 50% of time spent in counselling and/or direct pt care on unit). Coding Level of Care Code Acute Exec. Creative Director for Robin Fweduin Exam Comprehensive Diagnoses Displacement of lumbar disc with radiculopathy M51.16
[2019-12-24 00:41] VITALS: RESP 18; O2SAT 94
[2019-12-24] MEDS: oxyCODONE-APAP 10-325 mg Tablet 1 TAB PO (00:41)
[2019-12-24] MEDS: ketorolac 30 mg/mL INJ IVP (02:31)
[2019-12-24] MEDS: ondansetron 2 mg/ML SDV 2 mL 4 MG IVP (02:31)
[2019-12-24] MEDS: dexamethasone 4 mg/mL INJ IVP (02:31)
[2019-12-24 02:45] VITALS: BP 116/70; PULSE 75; RESP 18; TEMP 36.6; O2SAT 94
--- NOTE | 2019-12-24 03:06 | PC.NURSE ---
Yonny Ames here to pick and shovel worker pt. Belongings gathered. Toradol, decadron, and zofran given. No other needs from pt at this time. Called [facility] at [phone] to let them know pt is on her way via transport. Pt going to [facility] room #[facility].
== END 2019-12-24 02:45 | disposition short-term general hospital (02) ==
LOC: ER 12-19 00:19 → MEDSURG 12-19 00:20
PROVIDERS: Specialist; Admitting Provider Student in an Organized Health Care Education/Training Program; Emergency Provider Emergency Medicine; Visit Provider Internal Medicine
DX: Z92.3 Personal history of irradiation (principal)
CPT/HCPCS: 12345; 36415; 36591; 72131; 72157; 72158; 80048; 80053; 85025; 93005; 93010; 96374; 96375; 96376; 97116; 97140; 97161; 97530; 99282; 99285; A9579; G0378; J1100; J1170; J1642; J1885; J2060; J2270; J2360; J2405; J8540

== ENCOUNTER 2020-02-07 07:42 | Outpatient (CLI) | payer OTHER, MEDICAID, SELFPAY | END 2020-02-07 07:43 | disposition home or self-care (01) | LOC: ONCMED 07:53 | PROVIDERS: Visit Provider Internal Medicine Medical Oncology | DX: Z45.2 Encounter for adjustment and management of vascular access device (principal); C53.9 Malignant neoplasm of cervix uteri, unspecified; D64.9 Anemia, unspecified | CPT/HCPCS: 96523 ==

== ENCOUNTER 2020-03-06 15:06 | Outpatient (CLI) | payer OTHER, MEDICAID, SELFPAY ==
[2020-03-06 15:33] LABS: Basophils % 0.3 %; Eosinophils # 0.1 10^3/uL (0.0-0.8); Eosinophils % 1.6 %; Hematocrit 33.3 % (37.0-47.0); Lymphocytes # 0.9 10^3/uL (0.8-4.8); Lymphocytes % 13.8 %; Mean Corpuscular Hemoglobin 32.1 pg (28.0-34.0); Mean Corpuscular Volume 97.1 fL (81-99); Mean Platelet Volume 9.2 fL (7.4-10.4); Monocytes # 0.4 10^3/uL (0.2-0.9); Monocytes % 6.9 %; Neutrophils % 76.9 %; Nucleated Red Blood Cells % 0 %; Platelet Count 213 10^3/cmm (130-400); Red Blood Count 3.43 10^6/uL (4.1-5.3); White Blood Count 6.2 10^3/uL (4.0-10.0)
[2020-03-06 16:12] LABS: Vitamin B12 262 pg/mL (232-1245)
[2020-03-11 15:45] LABS: Methylmalonic Acid 242 nmol/L (87-318)
== END 2020-03-06 15:07 | disposition home or self-care (01) ==
LOC: ONCMED 15:12
PROVIDERS: Visit Provider Internal Medicine Medical Oncology
DX: C53.9 Malignant neoplasm of cervix uteri, unspecified (principal)
CPT/HCPCS: 36591; 82607; 83921; 85025

== ENCOUNTER → 2020-05-27 13:05 | Outpatient (BNVA) | payer OTHER, MEDICAID, SELFPAY | PROVIDERS: Referring Provider Dermatology; Visit Provider Orthopaedic Surgery | DX: M54.16 Radiculopathy, lumbar region (principal) | CPT/HCPCS: 72100 ==

== ENCOUNTER 2020-06-09 08:35 | Outpatient (CLI) | payer OTHER, MEDICAID, SELFPAY ==
[2020-06-09 08:57] LABS: Basophils % 0.3 %; Eosinophils # 0.1 10^3/uL (0.0-0.8); Eosinophils % 2.4 %; Hemoglobin 11.1 g/dL (11.5-15.3); Lymphocytes # 0.8 10^3/uL (0.8-4.8); Lymphocytes % 20.3 %; Mean Corpuscular HGB Conc 33.6 g/dL (30.0-36.0); Mean Corpuscular Hemoglobin 31.9 pg (28.0-34.0); Mean Corpuscular Volume 94.8 fL (81-99); Mean Platelet Volume 9.1 fL (7.4-10.4); Monocytes # 0.6 10^3/uL (0.2-0.9); Monocytes % 14.8 %; Neutrophils # 2.33 10^3/uL (1.8-7.7); Neutrophils % 61.4 %; Nucleated Red Blood Cells % 0 %; Platelet Count 214 10^3/cmm (130-400); Red Blood Count 3.48 10^6/uL (4.1-5.3); Red Cell Distribution Width 12.3 % (12.1-15.1); White Blood Count 3.8 10^3/uL (4.0-10.0)
[2020-06-09 09:16] LABS: Alanine Aminotransferase 39 U/L (0-33); Alkaline Phosphatase 86 IU/L (35-105); Anion Gap 13.5 (5-19); Aspartate Amino Transferase 34 U/L (0-32); Blood Urea Nitrogen 10 mg/dL (6-20); Calcium 8.6 mg/dL (8.5-10.5); Carbon Dioxide 27 mmol/L (22-29); Chloride 102 mmol/L (98-107); Globulin 2.3 g/dL (1.3-4.6); Glomerular Filtration Rate 65.6 mL/min (90-130); Glucose 127 mg/dL (65-115); Osmolality Calculated 289 mOsm/kg (285-295); Potassium 3.5 mmol/L (3.5-5.1); Sodium 139 mmol/L (136-145); Total Bilirubin 0.3 mg/dL (0.15-1.2); Total Protein 6.3 g/dL (6.6-8.7)
== END 2020-06-09 08:36 | disposition home or self-care (01) ==
LOC: ONCMED 08:38
PROVIDERS: Visit Provider Internal Medicine Medical Oncology
DX: C53.9 Malignant neoplasm of cervix uteri, unspecified (principal)
CPT/HCPCS: 36591; 80053; 85025

== ENCOUNTER → 2020-06-16 10:13 | Outpatient (BNVA) | payer OTHER, MEDICAID, SELFPAY | PROVIDERS: Visit Provider Orthopaedic Surgery | DX: Z11.59 Encounter for screening for other viral diseases (principal); M54.9 Dorsalgia, unspecified | CPT/HCPCS: 87635 ==

== ENCOUNTER 2020-06-23 08:16 | Day surgery (SDC) | payer OTHER, MEDICAID, SELFPAY ==
[2020-06-19 09:22] VITALS: BMI 37.5
--- NOTE | 2020-06-19 09:32 | ANES.PREANE2 ---
Pre-Anesthetic Assessment Pre-Anesthetic Assessment: Height/Weight: Height 1.7 m Weight 108.862 kg Preop Diagnosis: back pain Proposed Procedure: Operation Date: 06/23/20 10:15 Proposed Procedures p Bilateral L4/5 Lumbar Spine Decompression 89014 M48.062(Not Applicable) - Joe Her, Familial anesthetic complications: PONV during , but has since had many surgeries with no issues Social: Social History: No alcohol and No tobacco Exam: Pre-Anes Outpt Exam: alert, oriented x 3, clear to auscultation bilaterally and regular rate & rhythm Airway: Cervical ROM: WNL MP: 1 Dentition: Other (missing) Metabolic: Metabolic: Morbid obesity Musc/skel: Musc/skel: Lower Back Pain Anesthetic Plan: ASA status: 2 Anesthesia: General Risk of > 500 ml blood loss (7ml/kg in children): No Other Pertinent Information: chemo for cervical cancer PFSH Anesthesia PFSH: Medical History History of cervical cancer Surgical History History of hysterectomy Previous section 2012 Social History (Updated 01/11/20 @ 10:14 by Marc Mims MD) Smoking and tobacco status: never smoked Alcohol intake: never Current occupation: Oncology Nurse Data Anesthesia Cardiac Studies: No Data to Display
[2020-06-23] VITALS (8 sets, daily range): BP systolic 106–126; BP diastolic 62–81; PULSE 76–102; RESP 17–42; TEMP 36.3–37; O2SAT 97–100
--- NOTE | 2020-06-23 | XR_ITS ---
WS: [id number] XR lumbar spine 1V [id number] REASON FOR EXAM: lumbar spine decompression FINDINGS: Single view, intraoperative. Radiopaque device overlies the L4-L5 disc space. XR/XR lumbar spine 1V [id number] IMPRESSION: L4-L5 disc space localized.
--- NOTE | 2020-06-23 | SCC_ITS ---
Procedure Done: L4/5 laminectomy with partial facetectomy bilateral 9.3 seconds of fluoroscopic guidance, for a cumulative dose of 3.98 mGy, was provided to Dr. Hre by the radiology department. C-arm images of the lumbar spine were saved for the patient's permanent record. [facility]
--- NOTE | 2020-06-23 08:41 | W.PM.OPSUD ---
Surgery/Procedure H&P Update DATE OF PROCEDURE: June 23, 2020 DATE H&P PERFORMED: 05/27/20 H&P UPDATE INFORMATION: I have reviewed H&P completed within last 30 days, I have examined patient prior to procedure and No changes to prior documentation PREOP DIAGNOSIS: L4/5 stenosis PLANNED PROCEDURE: Operation Date: 06/23/20 10:15 Proposed Procedures p Bilateral L4/5 Lumbar Spine Decompression 14382 M48.062(Not Applicable) - Joe Her DO
--- NOTE | 2020-06-23 08:47 | P.ANESUD_ITS ---
Pre-Anesthetic Update Pre-Anesthetic Assessment: Date of Surgery/Procedure: 06/23/20 Preop Grace gnosis: L4/5 stenosis Proposed Procedure: Operation Date: 06/23/20 10:15 Proposed Procedures p Bilateral L4/5 Lumbar Spine Decompression 07860 M48.062(Not Applicable) - Joe Her, DO Any changes to Pre-Anesthetic Assessment?: No Last Intake: Intake Last Liquid Date 06/22/20 Last Liquid Time 21:00 Last Solid Date 06/22/20 Last Solid Time 20:00 Vitals: Temperature 97.3 F L 06/23/20 08:29 Temperature Source Temporal Artery S can 06/23/20 08:29 Pulse Rhythm 06/23/20 08:29 Oxygen Delivery Me thod 06/23/20 08:29 Exam: Pre-Anes Outpt Exam: alert, oriented x 3, clear to auscultation bilaterally and regular rate & rhythm Cardiac Studies: No Data to Display
[2020-06-23] MEDS: sodium chloride 0.9% 1,000 ML 30 ML IV (08:55)
[2020-06-23] MEDS: gabapentin 300 mg Capsule PO (08:55)
[2020-06-23 10:21] LABS: Potassium 3.4 mmol/L (3.5-5.1)
--- NOTE | 2020-06-23 10:35 | PM.OP ---
Operative Report Date of procedure: June 23, 2020 Pre-op Diagnosis: L4/5 stenosis Post-op diagnosis: same Procedure Done: L4/5 laminectomy with partial facetectomy bilateral Anesthesia: General Estimated blood loss (mL): 25 Condition: stable Disposition: PACU Procedure: Patient brought to operative suite after undergoing intubation was placed in the prone position all areas impingement well-padded patient's prepped and draped in normal sterile fashion skin was made over the L4-5 level was confirmed under C-arm guidance dilators were passed tubular retractor was inserted onto the L4 lamina laminectomy performed using the high-speed bur and Kerrison rongeur this was done bilaterally ligamentum flavum was taken down bilaterally from L4-L5 and significant thickened and then medial facets were taken down bilaterally using the Kerrison rongeur and high-speed bur once this was completed culturette was traced through the L4-5 foramen bilaterally as well as tracing around the L5 5 pedicle ensuring the L5 nerve root was decompressed bilaterally wounds irrigated and wound was closed with Vicryl and Monocryl suture sterile dressings applied patient was transferred to the PACU in stable condition.
[2020-06-23] MEDS: HYDROcodone-acetaminophen 5-325 mg Tablet 1 TAB PO (11:46)
--- NOTE | 2020-06-23 15:11 | ANE.PACU2 ---
Inpatient post-anesthesia follow up: Airway intact: Yes Vital signs: Temperature 97.8 F Pulse Rate 76 Respiratory Rate 20 Blood Pressure 115/62 Pulse Oximetry 98 Oxygen Delivery Me thod Room Air Oxygen Flow Rate 8 Fraction of Inspir ed Oxygen Hydration adequate: Yes Nausea and vomiting: No Pain level: 2 Mental status: Baseline
== END 2020-06-23 12:15 | disposition home or self-care (01) ==
PROVIDERS: Anesthesiology; Visit Provider Orthopaedic Surgery
PROC: (CPT 63005; principal; 2020-06-23 09:45)
DX: M48.061 Spinal stenosis, lumbar region without neurogenic claudication (principal); E66.01 Morbid (severe) obesity due to excess calories; Z68.37 Body mass index [BMI] 37.0-37.9, adult; Z85.41 Personal history of malignant neoplasm of cervix uteri
CPT/HCPCS: 63047; 12345; 72020; 76000; 84132; J0131; J0690; J1100; J2250; J2405; J2704; J2710; J2765; J3010; J3490; J7030

== ENCOUNTER 2020-09-24 16:56 | Outpatient (CLI) | payer OTHER, MEDICAID, SELFPAY | END 2020-09-24 16:57 | disposition home or self-care (01) | PROVIDERS: PCP Family Medicine; Visit Provider Internal Medicine Medical Oncology | DX: Z45.2 Encounter for adjustment and management of vascular access device (principal) | CPT/HCPCS: 96523 ==

== ENCOUNTER → 2020-12-09 11:12 | Outpatient (BNVA) | payer OTHER, MEDICAID, SELFPAY | PROVIDERS: PCP Family Medicine; Visit Provider Orthopaedic Surgery | DX: M48.062 Spinal stenosis, lumbar region with neurogenic claudication (principal) | CPT/HCPCS: 72100 ==

== ENCOUNTER → 2020-12-10 10:29 | Outpatient (BNVA) | payer OTHER, MEDICAID, SELFPAY | PROVIDERS: PCP Family Medicine; Referring Provider Orthopaedic Surgery; Visit Provider Anesthesiology Pain Medicine | DX: M79.18 Myalgia, other site (principal); M48.062 Spinal stenosis, lumbar region with neurogenic claudication; Z79.891 Long term (current) use of opiate analgesic | CPT/HCPCS: 20553; 99205; J1030; J3490 ==

== ENCOUNTER → 2021-01-07 12:52 | Outpatient (BNVA) | payer OTHER, MEDICAID, SELFPAY | PROVIDERS: PCP Family Medicine; Visit Provider Anesthesiology Pain Medicine | DX: M48.062 Spinal stenosis, lumbar region with neurogenic claudication (principal); M47.816 Spondylosis without myelopathy or radiculopathy, lumbar region; Z79.891 Long term (current) use of opiate analgesic | CPT/HCPCS: 99213 ==

== ENCOUNTER 2021-01-31 17:53 | Emergency (ER) | payer OTHER, MEDICAID, SELFPAY ==
[2021-01-31 17:58] VITALS: BP 136/90; PULSE 107; RESP 18; TEMP 36.6; O2SAT 94; BMI 35.2
--- NOTE | 2021-01-31 18:25 | ED_ITS ---
Documented by User: SEKOU Crane 01/31/21 20:48 HPI - Back Pain/Injury General: Chief Complaint: Back Pain/Injury Stated Complaint: RIGHT FLANK PAIN Time Seen by Provider: 01/31/21 18:18 Source: patient Mode of arrival: ambulatory Limitations: no limitations History of Present Illness: HPI Narrative: Patient is a 30-year-old female who presents to ED today with a complaint of right-sided back pain that began fairly suddenly. Patient states she had just gotten into the shower and stretched when she immediately noticed pain to the right side of her back. She does not complain of abdominal pain. She states pain seems to be worse with any form of movement and deep inhalation. Describes as a sharp stabbing pain. She states if she puts pressure to that particular area that seems to help slightly. Denies history of kidney stones. No shortness of breath or chest pain. Denies urinary symptoms. MD elicited complaint: back pain Onset (ago): hour(s) Timing: constant Severity: severe Similar Symptoms Previously: No Quality: sharp and stabbing Location: right flank Exacerbating factors: movement and deep breaths Relieving factors: other (pushing on affected area) Context: other (while stretching) Associated symptoms: Reports no associated symptoms; Deny abdominal pain, chills, dysuria, fatigue, fever(s), hematuria, nausea, urinary urgency or vomiting Work related injury: No Review of Systems Const: Denies: fever(s), chills, body aches, fatigue or malaise Card: Denies: chest pain Resp: Denies: dyspnea GI: Denies: abdominal pain, nausea, vomiting or diarrhea : Denies: difficulty voiding, dysuria, urinary frequency, urinary urgency, urinary hesitancy or hematuria Musc: Reports: back pain; Denies: neck pain, extremity pain, extremity swelling, joint pain or joint swelling Neuro: Denies: numbness in extremities, weakness in extremities or sensory changes PFSH ED PFSH: Medical History History of cervical cancer Surgical History History of hysterectomy Previous section 03/2019, 2012 Social History Smoking and tobacco status: never smoked Alcohol intake: never Current occupation: Oncology Nurse Physical Exam Const: COMMON NORMALS: no acute distress, average body habitus, patient oriented x3, no limitations, healthy appearing, alert and well nourished GENERAL APPEARANCE: cooperative Chest: COMMONS NORMALS: normal inspection of the chest and normal palpation of entire chest wall Resp: COMMON NORMALS: normal respiratory effort and clear to auscultation bilaterally AUSCULTATION: clear to auscultation bilaterally Cardio: COMMON NORMALS: regular rate and regular rhythm RATE: regular rate RHYTHM: regular rhythm GI: COMMON NORMALS: Normal to inspection, nondistended, normoactive bowel sounds present, Soft to palpation, non-tender, No hepatosplenomegaly present and no masses PALPATION: Yes Soft to palpation and Yes No hepatosplenomegaly present Extremity: COMMON NORMALS: normal to inspection Neuro: COMMON NORMALS: patient oriented x3 SENSORIUM/ORIENTATION: Yes alert Course Vital Signs: Vital signs: Vital Signs Temperature 97.9 F 01/31/21 17:58 Pulse Rate 78 01/31/21 19:17 Respiratory Rate 17 01/31/21 19:17 Blood Pressure 91/61 01/31/21 19:17 Pulse Oximetry 98 01/31/21 19:17 MDM - Back Pain/Injury MDM Narrative: Medical decision making narrative: No hematuria on UA to suggest stone. History and physical exam are consistent with muscle strain. Dr. Lowry also evaluated patient and agrees. She does feel better after IV meds. She states she has dexamethasone at home she can use. Will write for muscle relaxers and pain meds to use if needed. Return to ED precautions given. Lab Data: Labs: Lab Results 01/31/21 01/31/21 01/31/21 Range/Units 18:25 18:30 18:30 WBC 6.3 (4.0-10.0) 10^3/ uL RBC 3.92 L (4.1-5.3) 10^6/u L Hgb 12.4 (11.5-15.3) g/dL Hct 37.1 (37.0-47.0) % MCV 94.6 (81-99) fL MCH 31.6 (28.0-34.0) pg MCHC 33.4 (30.0-36.0) g/dL RDW 11.9 L (12.1-15.1) % Plt Count 257 (130-400) 10^3/c mm MPV 9.4 (7.4-10.4) fL Neut % (Auto) 68.1 % Lymph % (Auto) 22.1 % [place] % (Auto) 7.6 % Eos % (Auto) 1.4 % Baso % (Auto) 0.3 % Neut # (Auto) 4.28 (1.8-7.7) 10^3/u L Lymph # (Auto) 1.4 (0.8-4.8) 10^3/u L [place] # (Auto) 0.5 (0.2-0.9) 10^3/u L Eos # (Auto) 0.1 (0.0-0.8) 10^3/u L Baso # (Auto) 0.0 (0.0-0.1) 10^3/u L Nucleated RBC % (a uto) 0 % Nucleated RBCs # 0.0 /100WBC Sodium 137 (136-145) mmol/L Potassium 3.8 (3.5-5.1) mmol/L Chloride 99 (98-107) mmol/L Carbon Dioxide 27 (22-29) mmol/L Anion Gap 14.8 (5-19) BUN 13 (6-20) mg/dL Creatinine 1.2 H (0.5-0.9) mg/dL GFR Calculation 52.7 L (90-130) mL/min Glucose 96 (65-115) mg/dL Calculated Osmolal ity 284 L (285-295) mOsm/k g Calcium 9.0 (8.5-10.5) mg/dL Total Bilirubin 0.2 (0.15-1.2) mg/dL AST 19 (0-32) U/L ALT 27 (0-33) U/L Alkaline Phosphata se 126 H (35-105) IU/L Total Protein 7.2 (6.6-8.7) g/dL Albumin 4.4 (3.5-5.2) g/dL Globulin 2.8 (1.3-4.6) g/dL Urine Color Yellow (Yellow) Urine Appearance Clear (CLEAR) Urine pH 5 (5-7) Ur Specific Gravit y 1.015 (1.005-1.030) Urine Protein Neg (Negative) Urine Glucose (UA) Norm (Normal) Urine Ketones Negative (Negative) Urine Blood Neg (Negative) Urine Nitrate Negative (Negative) Urine Bilirubin Neg (Negative) Urine Urobilinogen Norm (Negative) mg/dL Ur Leukocyte Karen ase Negative (Negative) Discharge Plan Discharge Patient Disposition: Home Clinical Impression: Muscle strain of upper back Condition: Stable Prescriptions: New hydrocodone-acetaminophen 5-325 mg tablet 1 tab PO Q6H PRN (Reason: pain) Qty: 14 RF: 0 Robaxin-750 750 mg tablet 750 mg PO Q4H Qty: 20 RF: 0 Discontinued cyclobenzaprine 10 mg tablet 10 mg PO TID RF: 0 hydrocodone-acetaminophen 5-325 mg tablet 1 - 2 tab PO .Q4-6H PRNRF: 0 carisoprodol [Soma] 350 mg Tablet 350 mg PO TID RF: 0 No Action trazodone 100 mg tablet 100 mg PO BID RF: 0 lorazepam 1 mg tablet 1 mg PO DAILY PRNRF: 0 ibuprofen 800 mg Tablet 800 mg PO DAILY PRN (Reason: pain) RF: 0 Valium 5 mg Tablet 5 mg PO TID PRN (Reason: Anxiety) RF: 0 Lasix 40 mg Tablet 40 mg PO BID PRN (Reason: fluid retention) RF: 0 Discharge Orders: Discharge ED (Routine); Ordered 01/31/21 Ordered By: Elizabeth Martinez Referrals: Julio Salomon MD [Primary Care Provider] - Patient Instructions: Muscle Strain (ED) Coding Level of Care Code ED Plastering Contractor for Chg Fwd Exam Detailed Documented by User: Maksim Lowry DO 01/31/21 21:51 HPI - Back Pain/Injury General: Chief Complaint: Back Pain/Injury Stated Complaint: RIGHT FLANK PAIN Time Seen by Provider: 01/31/21 18:18 PFSH ED PFSH: Medical History History of cervical cancer Surgical History History of hysterectomy Previous section 2012 Social History Smoking and tobacco status: never smoked Alcohol intake: never Current occupation: Oncology Nurse Course Vital Signs: Vital signs: Vital Signs Temperature 97.9 F 01/31/21 17:58 Pulse Rate 78 01/31/21 19:17 Respiratory Rate 17 01/31/21 19:17 Blood Pressure 91/61 01/31/21 19:17 Pulse Oximetry 98 01/31/21 19:17 MDM - Back Pain/Injury MDM Narrative: Medical decision making narrative: 30-year-old female with right-sided back pain. She was originally evaluated by [facility]. I agree with her history, evaluation, and treatment. Exam suggests musculoskeletal origin, possibly quadratus lumborum or iliolumbar ligament. She is improved after medication here. Her belly is nontender. She will be allowed discharge for symptomatic treatment. She knows to return for any worsening symptoms. Lab Data: Labs: Lab Results 01/31/21 01/31/21 01/31/21 Range/Units 18:25 18:30 18:30 WBC 6.3 (4.0-10.0) 10^3/ uL RBC 3.92 L (4.1-5.3) 10^6/u L Hgb 12.4 (11.5-15.3) g/dL Hct 37.1 (37.0-47.0) % MCV 94.6 (81-99) fL MCH 31.6 (28.0-34.0) pg MCHC 33.4 (30.0-36.0) g/dL RDW 11.9 L (12.1-15.1) % Plt Count 257 (130-400) 10^3/c mm MPV 9.4 (7.4-10.4) fL Neut % (Auto) 68.1 % Lymph % (Auto) 22.1 % [place] % (Auto) 7.6 % Eos % (Auto) 1.4 % Baso % (Auto) 0.3 % Neut # (Auto) 4.28 (1.8-7.7) 10^3/u L Lymph # (Auto) 1.4 (0.8-4.8) 10^3/u L [place] # (Auto) 0.5 (0.2-0.9) 10^3/u L Eos # (Auto) 0.1 (0.0-0.8) 10^3/u L Baso # (Auto) 0.0 (0.0-0.1) 10^3/u L Nucleated RBC % (a uto) 0 % Nucleated RBCs # 0.0 /100WBC Sodium 137 (136-145) mmol/L Potassium 3.8 (3.5-5.1) mmol/L Chloride 99 (98-107) mmol/L Carbon Dioxide 27 (22-29) mmol/L Anion Gap 14.8 (5-19) BUN 13 (6-20) mg/dL Creatinine 1.2 H (0.5-0.9) mg/dL GFR Calculation 52.7 L (90-130) mL/min Glucose 96 (65-115) mg/dL Calculated Osmolal ity 284 L (285-295) mOsm/k g Calcium 9.0 (8.5-10.5) mg/dL Total Bilirubin 0.2 (0.15-1.2) mg/dL AST 19 (0-32) U/L ALT 27 (0-33) U/L Alkaline Phosphata se 126 H (35-105) IU/L Total Protein 7.2 (6.6-8.7) g/dL Albumin 4.4 (3.5-5.2) g/dL Globulin 2.8 (1.3-4.6) g/dL Urine Color Yellow (Yellow) Urine Appearance Clear (CLEAR) Urine pH 5 (5-7) Ur Specific Gravit y 1.015 (1.005-1.030) Urine Protein Neg (Negative) Urine Glucose (UA) Norm (Normal) Urine Ketones Negative (Negative) Urine Blood Neg (Negative) Urine Nitrate Negative (Negative) Urine Bilirubin Neg (Negative) Urine Urobilinogen Norm (Negative) mg/dL Ur Leukocyte Karen ase Negative (Negative) Discharge Plan Discharge Patient Disposition: Home Clinical Impression: Muscle strain of upper back Condition: Stable Prescriptions: New hydrocodone-acetaminophen 5-325 mg tablet 1 tab PO Q6H PRN (Reason: pain) Qty: 14 RF: 0 Robaxin-750 750 mg tablet 750 mg PO Q4H Qty: 20 RF: 0 Discontinued cyclobenzaprine 10 mg tablet 10 mg PO TID RF: 0 hydrocodone-acetaminophen 5-325 mg tablet 1 - 2 tab PO .Q4-6H PRNRF: 0 carisoprodol [Soma] 350 mg Tablet 350 mg PO TID RF: 0 No Action trazodone 100 mg tablet 100 mg PO BID RF: 0 lorazepam 1 mg tablet 1 mg PO DAILY PRNRF: 0 ibuprofen 800 mg Tablet 800 mg PO DAILY PRN (Reason: pain) RF: 0 Valium 5 mg Tablet 5 mg PO TID PRN (Reason: Anxiety) RF: 0 Lasix 40 mg Tablet 40 mg PO BID PRN (Reason: fluid retention) RF: 0 Discharge Orders: Discharge ED (Routine); Ordered 01/31/21 Ordered By: Elizabeth Martinez Referrals: Julio Salomon MD [Primary Care Provider] - Patient Instructions: Muscle Strain (ED) Coding Level of Care Code ED Plastering Contractor for Chg Fwd Exam Detailed
[2021-01-31 18:47] LABS: Basophils % 0.3 %; Eosinophils # 0.1 10^3/uL (0.0-0.8); Eosinophils % 1.4 %; Hematocrit 37.1 % (37.0-47.0); Hemoglobin 12.4 g/dL (11.5-15.3); Lymphocytes # 1.4 10^3/uL (0.8-4.8); Lymphocytes % 22.1 %; Mean Corpuscular HGB Conc 33.4 g/dL (30.0-36.0); Mean Corpuscular Hemoglobin 31.6 pg (28.0-34.0); Mean Corpuscular Volume 94.6 fL (81-99); Mean Platelet Volume 9.4 fL (7.4-10.4); Monocytes # 0.5 10^3/uL (0.2-0.9); Monocytes % 7.6 %; Neutrophils # 4.28 10^3/uL (1.8-7.7); Neutrophils % 68.1 %; Nucleated Red Blood Cells % 0 %; Platelet Count 257 10^3/cmm (130-400); Red Blood Count 3.92 10^6/uL (4.1-5.3); Red Cell Distribution Width 11.9 % (12.1-15.1); White Blood Count 6.3 10^3/uL (4.0-10.0)
[2021-01-31] MEDS: orphenadrine 30 mg/mL Inj 2 mL 60 MG IVP (18:50)
[2021-01-31] MEDS: morphine 4 mg/mL SDV 1 mL IVP (18:50)
[2021-01-31] MEDS: ondansetron 2 mg/ML SDV 2 mL 4 MG IVP (18:50)
[2021-01-31 19:02] LABS: Add Urine Microscopic? NO; Charge for UA Resulting for Rev
[2021-01-31 19:05] LABS: Bilirubin Urine Neg (Negative); Blood Urine Neg (Negative); Glucose Urine UA Norm (Normal); Ketones Urine Negative (Negative); Leukocyte Esterase Urine Negative (Negative); Nitrate Urine Negative (Negative); Protein Urine Neg (Negative); Specific Gravity, Urine 1.015 (1.005-1.030); Urine Appearance Clear (CLEAR); Urine Color Yellow (Yellow); Urobilinogen Urine Norm (Negative); pH Urine 5 (5-7)
[2021-01-31 19:06] LABS: Alanine Aminotransferase 27 U/L (0-33); Albumin Level 4.4 g/dL (3.5-5.2); Alkaline Phosphatase 126 IU/L (35-105); Aspartate Amino Transferase 19 U/L (0-32); Blood Urea Nitrogen 13 mg/dL (6-20); Carbon Dioxide 27 mmol/L (22-29); Chloride 99 mmol/L (98-107); Globulin 2.8 g/dL (1.3-4.6); Glomerular Filtration Rate 52.7 mL/min (90-130); Glucose 96 mg/dL (65-115); Osmolality Calculated 284 mOsm/kg (285-295); Sodium 137 mmol/L (136-145); Total Bilirubin 0.2 mg/dL (0.15-1.2); Total Protein 7.2 g/dL (6.6-8.7)
[2021-01-31 19:10] LABS: Anion Gap 14.8 (5-19); Potassium 3.8 mmol/L (3.5-5.1)
[2021-01-31 19:17] VITALS: BP 91/61; PULSE 78; RESP 17; O2SAT 98
[2021-01-31] MEDS: ketorolac 30 mg/mL INJ IVP (20:10)
[2021-01-31] MEDS: HYDROcodone-acetaminophen 5-325 mg Tablet 2 TAB PO (20:12)
== END 2021-01-31 20:15 | disposition home or self-care (01) ==
PROVIDERS: Emergency Provider Physician Assistant; PCP Family Medicine
DX: S29.012A Strain of muscle and tendon of back wall of thorax, initial encounter (principal); Z85.41 Personal history of malignant neoplasm of cervix uteri; X50.9XXA Other and unspecified overexertion or strenuous movements or postures, initial encounter
CPT/HCPCS: 80053; 81003; 85025; 96374; 96375; 99283; J1885; J2270; J2360; J2405

== ENCOUNTER 2021-03-09 15:02 | Outpatient (CLI) | payer OTHER, MEDICAID, SELFPAY ==
--- NOTE | 2021-03-09 16:12 | AMB.MCA ---
Patient Information Other details: Heena has a history of cancer (treated within past year) and BMI > 25. Both her parents diagnosed with COVID this past weekend. She had prolonged exposure to them without masks. At high risk of severe disease should she test covid +. She is vaccinated with 2 doses Moderna, last in Sep 2020. But her response to vaccine is not known. She meets criteria for MCA post exposure prophylaxis. [facility] COVID test results: SARS-CoV-2 RNA (RT-PCR) Not detected (NOT DETECTED) 06/16/20 10:13 06/16/20 no outside results available (post exposure prophylaxis) Criteria/Plan Inclusion/Exclusion Criteria age >/= 12 years and weight >/= 40kg /88lbs obesity (BMI >25 or 85%til for age) and cancer not requiring hospitalization, not requiring oxygen (if not chronically on oxygen) and no increase oxygen requirement (if chronically on oxygen) Patient education patient/caregiver received/reviewed fact sheet, Emergency Use Authorization/unapproved drug status discussed with patient/caregiver, alternatives to this treatment discussed with patient/caregiver, risks and benefits of medication reviewed with patient/caregiver, patient/caregiver given opportunity for questions, which were answered and patient/caregiver consents to receiving Monoclonal Antibody Treatment Plan for treatment Meets criteria for Monoclonal Antibody infusion (post exposure prophylaxis) Ordering Monoclonal Antibody infusion for today
== END 2021-03-09 15:03 | disposition home or self-care (01) ==
LOC: OPS 15:04
PROVIDERS: PCP Family Medicine; Visit Provider Hospitalist
DX: U07.1 COVID-19 (principal)
CPT/HCPCS: 96365

== ENCOUNTER → 2021-03-13 08:27 | Outpatient (BNVA) | payer OTHER, MEDICAID, SELFPAY | PROVIDERS: PCP Family Medicine; Visit Provider Anesthesiology Pain Medicine | DX: M54.16 Radiculopathy, lumbar region (principal); M48.062 Spinal stenosis, lumbar region with neurogenic claudication; M47.816 Spondylosis without myelopathy or radiculopathy, lumbar region; Z79.891 Long term (current) use of opiate analgesic | CPT/HCPCS: 99214 ==

== ENCOUNTER → 2021-03-18 14:25 | Outpatient (BNVA) | payer OTHER, MEDICAID, SELFPAY | PROVIDERS: PCP Family Medicine; Visit Provider Anesthesiology Pain Medicine | DX: M54.16 Radiculopathy, lumbar region (principal); M48.062 Spinal stenosis, lumbar region with neurogenic claudication; Z79.891 Long term (current) use of opiate analgesic | CPT/HCPCS: 64483; 64484; J1100; J3490 ==

== ENCOUNTER 2021-04-02 12:01 | Outpatient (CLI) | payer OTHER, MEDICAID, SELFPAY ==
--- NOTE | 2021-04-02 11:45 | MR_ITS ---
WS: [id number] MRI LUMBAR SPINE NONCONTRAST HISTORY: M54.16 - Radiculopathy, lumbar region COMPARISON: 12/18/2019 TECHNIQUE: Sagittal and axial multisequence imaging is submitted. Mild straightening of the normal lumbar lordosis. No marrow edema or fracture. Mild disc desiccation and narrowing at L4-5 and L5-S1. Conus terminates normally at L1. L1-L2: Normal. L2-L3: LEFT paracentral disc protrusion with fissure has decreased in size with less mass effect upon the thecal sac. There is very mild posterior displacement of the LEFT L3 nerve root. L3-L4: Diffuse annular disc bulge with a central annular fissure. Mild ligamentum flavum hypertrophy and facet arthritis. Very mild subarticular and foraminal narrowing. Similar to the prior study. L4-L5: Large central disc protrusion with encroachment into the ventral thecal sac and abutment again st the L5 nerve roots bilaterally. Mild subarticular recess and foraminal narrowing. This disc was pr esent on the prior study without increase in size or decreased. Does appear to be a RIGHT hemilaminec elma defect at this level. L5-S1: Mild annular disc bulging with mild ligamentum flavum disease and facet arthritis. Mild to mod erate bilateral foraminal stenosis due to combination of disc disease, osteophytes and facet arthriti s. Slightly greatest narrowing in the LEFT foramen. MR/MR lumbar spine wo con* [id number] IMPRESSION: 1. Moderate central disc protrusion at L4-5 with contact and displacement of t he L5 nerve roots bilaterally with mild subarticular and foraminal narrowing. S imilar to the prior study. 2. Multiple moderate bilateral foraminal stenosis at L5-S1, greatest on the LE FT due to combination of disc, osteophyte and facet arthritis. 3. LEFT paracentral disc protrusion is small at L2-3 and decreased in size sin ce the prior study. 4. Very mild subarticular foraminal narrowing at L3-4.
== END 2021-04-02 12:02 | disposition home or self-care (01) ==
PROVIDERS: PCP Family Medicine; Visit Provider Anesthesiology Pain Medicine
DX: M54.16 Radiculopathy, lumbar region (principal); M51.26 Other intervertebral disc displacement, lumbar region; M48.07 Spinal stenosis, lumbosacral region
CPT/HCPCS: 72148

== ENCOUNTER → 2021-04-15 14:47 | Outpatient (BNVA) | payer OTHER, MEDICAID, SELFPAY | PROVIDERS: PCP Nurse Practitioner Family; Visit Provider Nurse Practitioner Family | DX: Z00.00 Encounter for general adult medical examination without abnormal findings (principal); F32.9 Major depressive disorder, single episode, unspecified; Z71.3 Dietary counseling and surveillance | CPT/HCPCS: 80307; 86480 ==

== ENCOUNTER → 2021-07-27 00:01 | Outpatient (BNVA) | payer OTHER, MEDICAID, SELFPAY | PROVIDERS: PCP Nurse Practitioner Family; Visit Provider Family Medicine | DX: Z20.828 Contact with and (suspected) exposure to other viral communicable diseases (principal) | CPT/HCPCS: 87635 ==

== ENCOUNTER 2022-06-16 11:48 | Emergency (ER) | payer OTHER, MEDICAID, SELFPAY ==
[2022-06-16 11:48] VITALS: BP 172/96; PULSE 109; RESP 18; TEMP 36.6; O2SAT 99; BMI 34.4
[2022-06-16 11:51] VITALS: BP 134/93; PULSE 103; RESP 18; O2SAT 95
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
[2022-06-16 12:15] LABS: Basophils % 0.1 %; Eosinophils # 0.1 10^3/uL (0.0-0.8); Eosinophils % 1.8 %; Hematocrit 41.3 % (37.0-47.0); Hemoglobin 13.7 g/dL (11.5-15.3); Lymphocytes # 1.7 10^3/uL (0.8-4.8); Mean Corpuscular HGB Conc 33.2 g/dL (30.0-36.0); Mean Corpuscular Hemoglobin 30.9 pg (28.0-34.0); Mean Platelet Volume 9.1 fL (7.4-10.4); Monocytes # 0.6 10^3/uL (0.2-0.9); Monocytes % 8.6 %; Neutrophils # 4.37 10^3/uL (1.8-7.7); Neutrophils % 63.9 %; Nucleated Red Blood Cells % 0 %; Platelet Count 269 10^3/cmm (130-400); Red Blood Count 4.44 10^6/uL (4.1-5.3); White Blood Count 6.8 10^3/uL (4.0-10.0)
[2022-06-16 12:35] LABS: Alanine Aminotransferase 24 U/L (0-33); Albumin Level 4.4 g/dL (3.5-5.2); Alkaline Phosphatase 98 U/L (35-105); Anion Gap 16.3 (5-19); Aspartate Amino Transferase 18 U/L (0-32); Blood Urea Nitrogen 14 mg/dL (6-20); Calcium 9.3 mg/dL (8.5-10.5); Carbon Dioxide 26 mmol/L (22-29); Chloride 98 mmol/L (98-107); Globulin 3.1 g/dL (1.3-4.6); Glomerular Filtration Rate 57.9 mL/min (90-130); Glucose 126 mg/dL (65-115); Osmolality Calculated 286 mOsm/kg (285-295); Potassium 3.3 mmol/L (3.5-5.1); Sodium 137 mmol/L (136-145); Total Bilirubin 0.3 mg/dL (0.15-1.2); Total Protein 7.5 g/dL (6.6-8.7)
[2022-06-16 12:49] LABS: Add Urine Microscopic? YES; Bilirubin Urine Neg (Negative); Blood Urine Neg (Negative); Glucose Urine UA Norm (Normal); Ketones Urine Negative (Negative); Leukocyte Esterase Urine 2+ (Negative); Nitrate Urine Negative (Negative); Protein Urine Trace (Negative); Specific Gravity, Urine 1.015 (1.005-1.030); Urine Appearance Hazy (CLEAR); Urine Color Yellow (Yellow); Urobilinogen Urine 1 mg/dL (Negative); pH Urine 5 (5-7)
[2022-06-16 12:50] LABS: Add Urine Culture? Yes; RBC Urine 0-4 /hpf (0-2); WBC Urine 25-40 /hpf (0-5)
[2022-06-16 12:51] VITALS: BP 119/81; PULSE 90; O2SAT 94
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
[2022-06-16] MEDS: ketorolac 30 mg/mL INJ IVP (13:54)
[2022-06-16] MEDS: HYDROcodone-acetaminophen 5-325 mg Tablet 1 TAB PO (13:54)
[2022-06-16 14:02] VITALS: BP 127/86; PULSE 82; RESP 18; O2SAT 97
== END 2022-06-16 14:14 | disposition home or self-care (01) ==
PROVIDERS: Emergency Provider Family Medicine; PCP Nurse Practitioner Family
DX: Z04.1 Encounter for examination and observation following transport accident (principal); N30.90 Cystitis, unspecified without hematuria; Z85.41 Personal history of malignant neoplasm of cervix uteri; V89.2XXA Person injured in unspecified motor-vehicle accident, traffic, initial encounter
CPT/HCPCS: 71045; 72125; 72170; 73552; 80053; 81001; 85025; 87086; 96374; 99285; J1885